=== PATIENT | female | born 1950 | race Caucasian/White ===

== ENCOUNTER 2023-01-13 09:49 | Outpatient (OUT) | payer MEDICARE, OTHER, SELFPAY ==
[2023-01-13 10:14] LABS: Basophils Absolute Auto 0.1 10^3/uL (0.0-0.1); Basophils Percent Auto 1.4 % (0.2-2.0); Eosinophils Absolute Auto 0.1 10^3/uL (0.0-0.7); Eosinophils Percent Auto 2.6 % (0.9-7.0); Hematocrit 42.3 % (36.0-48.0); Hemoglobin 14.2 g/dL (12.0-16.0); Lymphocytes Absolute Auto 1.3 10^3/uL (1.2-3.8); Lymphocytes Percent Auto 30.4 % (20.5-60.0); Mean Corpuscular HGB Conc 33.6 g/dL (29.9-35.2); Mean Corpuscular Hemoglobin 32.1 pg (26.7-34.0); Mean Corpuscular Volume 95.7 fL (81.0-99.0); Mean Platelet Volume 9.5 fL (9.5-13.5); Monocytes Absolute Auto 0.5 10^3/uL (0.3-0.8); Monocytes Percent Auto 11.8 % (1.7-12.0); Neutrophils Absolute Auto 2.3 10^3/uL (1.4-6.5); Neutrophils Percent Auto 53.8 % (43.0-75.0); Platelet Count 251 10^3/uL (150-450); Red Blood Count 4.42 10^6/uL (4.20-5.40); Red Cell Distribution Width 11.6 % (11.0-15.0); White Blood Count 4.2 10^3/uL (4.0-11.0)
[2023-01-13 11:11] LABS: Anion Gap 8.8; BUN Creatinine Ratio 34.3; Calcium 9.1 mg/dL (8.5-10.1); Carbon Dioxide 31.8 mmol/L (21.0-32.0); Chloride 101 mmol/L (98-107); Chol HDL Ratio 3.4; Cholesterol 244 mg/dL (<=200); Estimated GFR (African America >60 (>=60); Estimated GFR (Non-African Ame >60 (>=60); Glucose 94 mg/dL (74-106); HDL Cholesterol 72 mg/dL (40-60); Potassium 3.6 mmol/L (3.5-5.1); Sodium 138 mmol/L (136-145); Thyroid Stimulating Hormone 2.238 uIU/mL (0.358-3.740); Triglycerides 58 mg/dL (<=150); VLDL CHOLESTEROL 11.6 mg/dL
== END 2023-01-13 09:50 | disposition home or self-care (01) ==
LOC: LAB 09:55
PROVIDERS: PCP Internal Medicine; Visit Provider Internal Medicine
DX: E78.00 Pure hypercholesterolemia, unspecified (principal); K21.00 Gastro-esophageal reflux disease with esophagitis, without bleeding; R53.83 Other fatigue; Z79.899 Other long term (current) drug therapy
CPT/HCPCS: 36415; 80048; 80061; 82306; 84443; 85025

== ENCOUNTER 2023-01-17 11:24 | Outpatient (OUT) | payer MEDICARE, OTHER, SELFPAY ==
--- NOTE | 2023-01-17 11:28 | MM_ITS ---
Patient: JANE LIU Exam Date: 01/17/2023 : 1950 Gender:F Ordering : DR Prabhjot Hess D.O. Admission #: [id number] Family : Order #: [id number] CLICK HERE TO VIEW EXAM RADIOLOGY REPORT PROCEDURE: MM TOMOSYNTHESIS SCREENING BI COMPARISON: MG MAMM SCREEN 3D [place] CAD, 01/25/2021. MG MAMM SCREEN [place] W CAD, 01/21/2020. MG MAMM SCREEN [place] W CAD, 05/17/2018. MG MAMM [place] DIAG W CAD DIG, 04/09/2007. INDICATIONS: Screening Calculator Name NCI Breast Cancer Risk Assessment Tool 5 Year Breast Cancer Risk 1.40% Lifetime Breast Cancer Risk 4.00% Personal Breast Cancer No Personal Ovarian Cancer No Treatments None Family Cancers Sister with malignant melonoma cancer at age 41. LOCATION: [facility] BREAST COMPOSITION: Scattered areas fibroglandular density. FINDINGS: DIAGNOSTIC CATEGORY 2--BENIGN FINDING: RIGHT BREAST: No significant suspicious finding. No significant change has occurred. LEFT BREAST: No significant suspicious finding. Scattered benign-appearing calcifications are present. No significant change has occurred. RECOMMENDATIONS: ROUTINE MAMMOGRAM AND CLINICAL EVALUATION IN 12 MONTHS. PLEASE NOTE: A NORMAL MAMMOGRAM DOES NOT EXCLUDE THE POSSIBILITY OF BREAST CANCER. A CLINICALLY SUSPICIOUS PALPABLE LUMP SHOULD BE BIOPSIED. Dictated by: Al Wallace M.D. on 01/18/2023 at 13:09 Approved by: Al Wallace M.D. on 01/18/2023 at 13:20
== END 2023-01-17 11:25 | disposition home or self-care (01) ==
LOC: MAMMO 11:24
PROVIDERS: PCP Internal Medicine; Visit Provider Internal Medicine
DX: Z12.31 Encounter for screening mammogram for malignant neoplasm of breast (principal); Z80.8 Family history of malignant neoplasm of other organs or systems
CPT/HCPCS: 77063; 77067

== ENCOUNTER 2024-03-11 08:52 | Outpatient (OUT) | payer MEDICARE, OTHER, SELFPAY ==
--- NOTE | 2024-03-11 08:56 | US_ITS ---
[address] [address] Patient Name: JANE LIU MRN: [id number] date: 1950 Sex: F Assigned Patient Location: MAMMO Current Patient Location: MAMMO Accession/Order Number: [id number] Exam Date: 03/11/2024 09:06 Report Date: 03/11/2024 12:54 At the request of: ALEXANDRA YU Procedure: US aorta EXAM: US aorta HISTORY: Family History Of Aortic Aneurysm Z82.49 COMPARISON: None. TECHNIQUE: Grayscale, color and Doppler FINDINGS: Aorta: Proximal: 2.2 x 1.9 cm Mid: 1.6 x 1.6 cm Distal: 1.4 x 1.5 cm Right common iliac artery: 1.0 x 1.1 Left common iliac artery: 1.2 x 1.2 US/US aorta IMPRESSION: No aortic aneurysm Electronically authenticated by: RAINA MCDANIEL Date: 03/11/2024 12:54
--- NOTE | 2024-03-11 08:56 | MM_ITS ---
Patient Name: JANE LIU MR#: [id number] : 1950 Exam Date: 03/11/2024 Ordering Doctor: DR Prabhjot Hess D.O. RADIOLOGY REPORT PROCEDURE: MM TOMOSYNTHESIS SCREENING BI COMPARISON: MG MAMM SCREEN 3D [place] CAD, 01/25/2021. MM TOMOSYNTHESIS SCREENING BI, 01/17/2023. INDICATIONS: Screening Calculator Name NCI Breast Cancer Risk Assessment Tool 5 Year Breast Cancer Risk 1.40% Lifetime Breast Cancer Risk 3.80% Personal Breast Cancer No Personal Ovarian Cancer No Treatments None Family Cancers Sister with malignant melonoma cancer at age 41. LOCATION: [facility] BREAST COMPOSITION: There are scattered areas of fibroglandular density. FINDINGS: DIAGNOSTIC CATEGORY 2--BENIGN FINDING. NO CHANGE FROM COMPARISON. Scattered benign-appearing calcifications are present. Scattered benign-appearing lymph nodes are present. RIGHT BREAST: No significant suspicious finding. LEFT BREAST: No significant suspicious finding. RECOMMENDATIONS: ROUTINE MAMMOGRAM AND CLINICAL EVALUATION IN 12 MONTHS. PLEASE NOTE: A NORMAL MAMMOGRAM DOES NOT EXCLUDE THE POSSIBILITY OF BREAST CANCER. A CLINICALLY SUSPICIOUS PALPABLE LUMP SHOULD BE BIOPSIED. Dictated by: Lei Espitia MD on 03/11/2024 at 12:14 Approved by: Lei Espitia MD on 03/11/2024 at 12:15
[2024-03-11 10:23] LABS: Basophils Absolute Auto 0.1 10^3/uL (0.0-0.1); Basophils Percent Auto 1.1 % (0.2-2.0); Eosinophils Absolute Auto 0.1 10^3/uL (0.0-0.7); Eosinophils Percent Auto 1.8 % (0.9-7.0); Hematocrit 41.5 % (36.0-48.0); Hemoglobin 13.9 g/dL (12.0-16.0); Immature Granulocytes Abs Auto 0.01 10^3/uL (0.00-0.03); Immature Granulocytes Pct Auto 0.2 % (0.0-0.5); Lymphocytes Absolute Auto 1.4 10^3/uL (1.2-3.8); Lymphocytes Percent Auto 30.3 % (20.5-60.0); Mean Corpuscular HGB Conc 33.5 g/dL (29.9-35.2); Mean Corpuscular Hemoglobin 31.8 pg (26.7-34.0); Mean Platelet Volume 10.2 fL (9.5-13.5); Monocytes Absolute Auto 0.6 10^3/uL (0.3-0.8); Monocytes Percent Auto 14.3 % (1.7-12.0); Neutrophils Absolute Auto 2.4 10^3/uL (1.4-6.5); Neutrophils Percent Auto 52.3 % (43.0-75.0); Platelet Count 266 10^3/uL (150-450); Red Blood Count 4.37 10^6/uL (4.20-5.40); Red Cell Distribution Width 11.3 % (11.0-15.0); White Blood Count 4.5 10^3/uL (4.0-11.0)
[2024-03-11 10:32] LABS: Alanine Aminotransferase 24 U/L (14-59); Albumin Level 3.5 g/dL (3.4-5.0); Alkaline Phosphatase 60 U/L (46-116); Anion Gap 10.3; Aspartate Amino Transferase 17 U/L (15-37); BUN Creatinine Ratio 24.7; Bilirubin Total 0.4 mg/dL (0.2-1.0); Calcium 9.2 mg/dL (8.5-10.1); Carbon Dioxide 29.1 mmol/L (21.0-32.0); Chloride 103 mmol/L (98-107); Chol HDL Ratio 4.8; Cholesterol 308 mg/dL (<=200); Estimated GFR (African America >60 (>=60 mL/min/1.73m^2); Estimated GFR (Non-African Ame >60 (>=60 mL/min/1.73m^2); Globulin 3.5 g/dL; Glucose 87 mg/dL (74-106); HDL Cholesterol 64 mg/dL (40-60); Potassium 3.4 mmol/L (3.5-5.1); Sodium 139 mmol/L (136-145); Triglycerides 101 mg/dL (<=150); VLDL CHOLESTEROL 20.2 mg/dL
== END 2024-03-11 08:53 | disposition home or self-care (01) ==
LOC: MAMMO 08:52
PROVIDERS: PCP Internal Medicine; Visit Provider Internal Medicine
DX: E78.00 Pure hypercholesterolemia, unspecified (principal); R60.9 Edema, unspecified; Z83.3 Family history of diabetes mellitus; E55.9 Vitamin D deficiency, unspecified; Z12.31 Encounter for screening mammogram for malignant neoplasm of breast; Z82.49 Family history of ischemic heart disease and other diseases of the circulatory system; Z80.8 Family history of malignant neoplasm of other organs or systems
CPT/HCPCS: 36415; 76706; 77063; 77067; 80053; 80061; 82306; 85025

== ENCOUNTER 2024-07-07 10:51 | Emergency (ER) | payer MEDICARE, OTHER, SELFPAY ==
[2024-07-07 10:54] VITALS: BP 158/96; PULSE 65; TEMP 36.6; O2SAT 99; BMI 23.6
--- OUTSIDE RECORDS SUMMARY | 2024-07-07 10:57 | XMS_ITS | CCD ---
Author Organization [facility] ion Partnership [facility] Care Team Providers Care Neon Technician Name Role Phone GABRIEL, DR WILSON Admitting Unavailable AIMEE, DR RICK Primary Care Unavailable GABRIEL, DR WILSON Attending Unavailable AIMEE, DR RICK Attending Unavailable AIMEE, DR RICK Consulting Unavailable AIMEE, DR RICK Primary Care Unavailable AIMEE, DR RICK Admitting Unavailable KEVIN, DR KEY Reno Consulting Unavailable Aimee, Prabhjot Unavailable Allergies Allergy Classification Reported Allergen(s) Allergy Type Date of Onset Reaction(s) Facility (1 source) black walnut pollen extract Drug Allergy 1 [facility] Repository (3 sources) atorvastatin Drug Allergy Comment:Myalgia s [facility] Other (3 sources) HMG-CoA reductase inhibitor Drug allergy 4 Unknown [facility] Other Medications Current Medications Medication Drug Class(es) Dates Sig (Normalized) Sig (Original) Calcium + D 500-1000-40 MG-UNT-MCG (3 sources) Start: 12-20-2007 take 500-1000 tablets by mouth once daily Calcium + D 500-1000-40 MG-UNT-MCG as directed Orally 2 TABS DAILY for 0 days Nov, Active famotidine 20 mg oral tablet (4 sources) Histamine-2 Receptor Antagonist Start: 03-01-2024 take 1 tablet by mouth once daily at bedtime Famotidine Active 1 TAB PO Daily at bedtime March 01, 2024 12:00am [employer] tablet at bedtime as needed Orally Once a day; Note: Source Status: Taking; Provider: Aimee Rick ( ) take 1 tablet by reggie th every twenty-four hours Famotidine 20 MG 1 tablet at bedtime as needed Orally Once a day Active Glucosamine Chondroit MSM DS - (3 sources) Start: 06-10-2021 Glucosamine Chondroit MSM DS - as directed Orally daily for 0 days May, Active latanoprost 0.05 mg/ml ophthalmic solution (1 source) Prostaglandin Analog Start: 03-01-2024 take 1 drop(s) into the eye(s) once daily Latanoprost Active 1 DROPS EYE-BOTH Daily March 01, 2024 12:00am Magnesium (3 sources) Start: 06-10-2021 take 1 capsule by mouth once daily Magnesium 400 MG 1 capsule with a meal Orally Once a day for 0 days May, Active Multivitamins (3 sources) Start: 12-20-2007 Multivitamins Multivitamins , DAILY # 0.00, 12/20/2007, No Refill. Active DAILY for 0 Nov, Active omeprazole 20 mg oral tablet (3 sources) Proton Pump Inhibitor Start: 06-10-2021 Omeprazole 20MG Omeprazole( 20MG Oral 1 daily ) Active -Hx Entry Oral daily for 0 May, Not-Taking Completed/Discontinued Medications Medication Drug Class(es) Dates Sig (Normalized) Sig (Original) escitalopram 10 mg oral tablet (4 sources) Serotonin Reuptake Inhibitor Start: 03-01-2024 End: 03-01-2024 take 1 tablet by mouth once daily Escitalopram Oxalate Discontinued 1 TAB PO Daily March 01, 2024 12:00am March 01, 2024 11:14am [employer] tablet Orally Once a day; Note: Source Status: Taking; Provider: Aimee Rick ( ) take 1 tablet by reggie th every twenty-four hours Escitalopram Oxalate 10 MG 1 tablet Oral ly Once a day Active ezetimibe 10 mg oral tablet (4 sources) Dietary Cholesterol Absorption Inhibitor Start: 03-01-2024 End: 03-01-2024 take 1 tablet by mouth once daily Ezetimibe Discontinued 1 TAB PO Daily March 01, 2024 12:00am March 01, 2024 11:14am [employer] tablet Orally Once a day; Note: Source Status: Taking; Provider: Aimee Rick ( ) Start: 03-08-2022 take 1 tablet by reggie th every twenty-four hours Ezetimibe 10 MG 1 tablet Orally Once a day Feb, Active Problems Active Problems Problem Classification Problem Date Documented Da te Episodic/Chronic Anxiety disorders (5 sources) Generalized anxiety disorder; Translations: [Generalized anxiety disorder] 02-28-2024 Chronic Disorders of lipid metabolism (5 sources) Hypercholesterolemi a; Translations: [Pure hypercholesterolemi a, unspecified] 02-28-2024 Chronic Esophageal disorders (3 sources) Gastro-esophageal reflux disease with esophagitis; Translations: [Gastro-esophageal reflux disease with esophagitis, without bleeding] 02-28-2024 Chronic Esophageal disorders (2 sources) Esophageal disorders; Translations: [Gastro-esophageal reflux disease with esophagitis, without bleeding] Immunizations and screening for infectious disease (1 source) Encounter for immunization; Translations: [Need for prophylactic vaccination and inoculation against unspecified single disease] 02-19-2024 Episodic Nutritional deficiencies (4 sources) Vitamin D deficiency; Translations: [Vitamin D deficiency, unspecified] 03-01-2024 Chronic Other connective tissue disease (4 sources) Presence of left artificial shoulder joint; Translations: [PRESENCE LT ARTIFICIAL SHOULDER JNT] Onset: 08-04-2021 Chronic Other lower respiratory disease (4 sources) Solitary pulmonary nodule; Translations: [SOLITARY PULMONARY NODULE] Onset: 05-10-2022 Episodic Other screening for suspected conditions (not mental disorders or infectious disease) (2 sources) Patient encounter status; Translations: [Encounter for screening mammogram for malignant neoplasm of breast] 02-28-2024 Episodic Residual codes; unclassified (1 source) Family history of diabetes mellitus; Translations: [Family history of diabetes mellitus] 03-01-2024 Episodic Residual codes; unclassified (1 source) Edema; Translations: [Edema, unspecified] 03-01-2024 Episodic Residual codes; unclassified (1 source) FH: Aortic aneurysm; Translations: [Family history of ischemic heart disease and other diseases of the circulatory system] 03-01-2024 Episodic Residual codes; unclassified (1 source) Family history of diabetes mellitus; Translations: [Family history of diabetes mellitus] 03-01-2024 Episodic Past or Other Problems Problem Classification Problem Date Documented Da te Episodic/Chronic Malaise and fatigue (1 source) Weakness; Translations: [WEAKNESS] Onset: 08-10-2021 Episodic Other connective tissue disease (1 source) Pain in left arm; Translations: [PAIN IN LEFT ARM] Onset: 08-10-2021 Episodic Results Test Name Value Interpretation Reference Range Facil ity CT CHEST WO CONon 05-10-2022 CT CHEST WO CON EXAMINATION: CT CHEST WO CON HISTORY: Solitary nodule of lung COMPARISON: No relevant comparison available. TECHNIQUE: Axial, Coronal, and Sagittal images were created without the administration of IV contrast material. Dose reduction techniques were achieved by using automated exposure control and/or adjustment of mA and/or kV according to patient size and/or use of iterative reconstruction technique. FINDINGS: LUNGS: No visible pulmonary disease. PLEURA: No mass, effusion, or pneumothorax. VASCULATURE: No abnormality. KANCHAN: No mass or pathologic adenopathy. MEDIASTINUM: No mass or pathologic adenopathy. CARDIAC: No enlargement, pericardial thickening, or significant calcification. AORTA: No aneurysm or dissection. CHEST WALL: No mass or axillary adenopathy BONES: Right rotator cuff repair. Left shoulder replacement. Prominent scoliotic curvature of thoracic spine. Multilevel moderate-marked degenerative disc disease. LIMITED ABDOMEN: 1 mm nonobstructing stone within left kidney. OTHER: Negative. IMPRESSION: 1. No suspicious pulmonary nodules. 2. No appreciable infiltrates or suspicious findings. 3. Nonobstructing left nephrolithiasis. Electronically authenticated by: KEY BROWN Date: 2022-05-10 12:14 Normal [facility] Vital Signs Date Time Vital Sign Value Performing Clinician Kimberlee andersen 03-01-2024 11:110400 Body height 154.94 cm [facility] 03-01-2024 11:110400 Body mass index (BMI) [Ratio] 23.8 kg/m2 [facility] 03-01-2024 11:11040 Body weight 57.15 kg [facility] 03-01-2024 11:11-0400 Diastolic blood pressure 85 mm[Hg] [facility] 03-01-2024 11:11-0400 Heart rate 76 /min [facility] 03-01-2024 11:110400 Respiratory rate 12 /min [facility] 03-01-2024 11:11-0400 Systolic blood pressure 135 mm[Hg] [facility] Encounters Encounter Date Encounter Type Care Provider Facility Start: 03-01-2024 End: 03-01-2024 ambulatory [facility] Work Phone: Start: 03-01-2024 End: 03-01-2024 Patient encounter procedure [facility] Work Phone: Start: 02-28-2024 Patient encounter procedure [facility] Start: 02-19-2024 End: 02-19-2024 ambulatory [facility] Work Phone: Start: 02-19-2024 End: 02-19-2024 Patient encounter procedure [facility] Work Phone: Start: 02-17-2023 End: 02-17-2023 ambulatory Prabhjot Yu Other [facility] Other Start: 02-17-2023 Nursing evaluation o f patient and report Prabhjot Yu [facility] Start: 02-03-2023 End: 02-03-2023 ambulatory Prabhjot Yu Other [facility] Other Start: 02-03-2023 Telephone encounter Prabhjot Yu [facility] Start: 01-16-2023 End: 01-16-2023 ambulatory Prabhjot Yu Other [facility] Other Start: 01-16-2023 Telephone encounter Prabhjot Yu [facility] Start: 05-10-2022 End: 05-11-[address] PRABHJOT YU Facility:[facility] Start: 08-04-2021 End: 09-28-[address] DOCTOR RIOS Facility:[facility] Plan of Treatment Date Care Activity Detail Author MG Breast - bilateral Screening [facility] US scan of abdominal aorta [facility] Immunizations Immunization Date Immunization Notes Care Provider Fa josh 02-19-2024 influenza, high dose seasonal, preservative-free [facility] 02-17-2023 influenza virus vaccine, unspecified formulation [facility] 02-17-2023 influenza, high dose seasonal, preservative-free Prabhjot Yu Other [facility] Other 03-04-2022 influenza virus vaccine, unspecified formulation [facility] 03-04-2022 influenza, high dose seasonal, preservative-free Prabhjot Yu Other [facility] Other 03-19-2021 influenza virus vaccine, split virus (incl. purified surface antigen) Prabhjot Yu Other [facility] Other 03-19-2021 influenza virus vaccine, unspecified formulation [facility] 03-10-2020 influenza virus vaccine, split virus (incl. purified surface antigen) Prabhjot Yu Other [facility] Other 03-10-2020 influenza virus vaccine, unspecified formulation [facility] 03-11-2019 influenza virus vaccine, split virus (incl. purified surface antigen) Prabhjot Yu Other [facility] Other 03-11-2019 influenza virus vaccine, unspecified formulation [facility] 05-08-2018 pneumococcal polysaccharide vaccine, 23 valent Prabhjot Yu Other [facility] 02-07-2018 influenza virus vaccine, split virus (incl. purified surface antigen) Prabhjot Yu Other [facility] Other 02-07-2018 influenza virus vaccine, unspecified formulation [facility] 06-20-2017 influenza virus vaccine, split virus (incl. purified surface antigen) Prabhjot Yu Other [facility] Other 06-20-2017 influenza virus vaccine, unspecified formulation [facility] 04-25-2017 pneumococcal conjuga te vaccine, 13 valent Prabhjot Yu Other [facility] Payers Date Payer Category Payer Medicare [id number] 1958 Unknown [id number] 1950 Unknown [id number] 1950 Unknown [id number] Social History Date Type Detail Facility Sex Assigned At [facility] Other Start: 1950 Sex Assigned At Female [facility] Chief complaint+Reason for visit Narrative Note Date & Type Note Facility Chief complaint+Reason for visit Narrative Reason for Visit Immunization due Family history of diabetes mellitus JONATHON (generalized anxiety disorder) GERD (gastroesophageal reflux disease) Hypercholesterolemia Medicare annual wellness visit, subsequent Screening mammogram for breast cancer [facility] Work Phone: Evaluation note Note Date & Type Note Facility Evaluation note No Information [facility] Other Evaluation note Note Date & Type Note Facility Evaluation note No assessment information availa ble [facility] Work Phone: Evaluation note Note Date & Type Note Facility Evaluation note Diagnosis Onset Date Immunization due noneactive Family history of diabetes mellitus acute JONATHON (generalized anxiety disorder) acute GERD (gastroesophageal reflux disease) acute Hypercholesterolemia acute Medicare annual wellness visit, subsequent acute Screening mammogram for breast cancer acute [facility] Work Phone: History general Narrative - Reported Note Date & Type Note Facility History general Narrative - Reported Type Medical History Palpitations Medical History Generalized anxiety disorder Medical History Hyperlipidemia, unspecified Medical History Flushing Medical History Solitary lung nodule Surgical History LAN/BSO 2016 Surgical History REVERSE TOTAL REPLAC EMENT OF LEFT SHOULDER JOINT Surgical History TONSILLECTOMY Surgical History APPENDECTOMY Surgical History ARTHROSCOPY, SHOULDER, BILATERA L Hospitalization History SEE SURIGICAL HX [facility] Other Summary Purpose Family History Relationship Condition Age at Onset Recorded Date/T mamta mother Diabetes mellitus Unknown Unknown sister Malignant melanoma Unknown Malignant neoplasm Unknown Advance Directives Advance Directive Response Recorded Date/ Time Advance Directives No January 10:09am Chief Complaint and Reason for Visit Chief Complaint flu shot Additional Source Comments INFORMATION SOURCE (unrecogn ized section and content) DATE CREATED AUTHOR 05/20/2022 [facility] REASON FOR VISIT (unrecogniz ed section and content) Lab ResultsCologuard results flu shot Care Teams (unrecognized sec tion and content) Team Status: Active Member Role Status Dates Prabhjot Ball , DO Primary Care Provider Active Team Status: Inactive Member Role Status Dates Prabhjot Yu DO Primary Care Provide r, Attending Provider Active Start: February 19, 2024 End: February 19, 2024 Team Status: Inactive Member Role Status Dates Prabhjot Yu DO Primary Care Provide r, Attending Provider Active Start: March 01, 2024 End: March 01, 2024 Goals (unrecognized section and content) Goals may be documented in a n alternate section FOR RECORDS PERTAINING TO PATIENTS WHO ARE OR HAVE BEEN ENROLLED IN A CHEMICAL DEPENDENCY/SUBSTANCEABUSE PROGRAM, SOME INFORMATION MAY BE OMITTED. This clinical summary was aggregated from multiple sources. Caution should be exercised in using it in the provision of clinical care. This summary normalizes information from multiple sources, and as a consequence, information in this document may materially change the coding, format and clinical context of patient data. In addition, data may be omitted in some cases. CLINICAL DECISIONS SHOULD BE BASED ON THE PRIMARY CLINICAL RECORDS. [facility] [facility]. provides no warranty or guarantee of the accuracy or completeness of information in this document.
--- NOTE | 2024-07-07 11:07 | CT_ITS ---
The [address] [address] Patient Name: JANE LIU MRN: [id number] date: 1950 Sex: F Assigned Patient Location: ER Current Patient Location: ED.MAIN Accession/Order Number: [id number] Exam Date: 07/07/2024 11:14 Report Date: 07/07/2024 12:31 At the request of: AMBER MATHEW Procedure: CT abdomen pelvis wo con CT ABDOMEN AND PELVIS WITHOUT CONTRAST: 07/07/2024 11:14 AM EST Clinical Data: left lower quadrant pain with flank pain Comparison: No previous Unenhanced helically acquired data per protocol. The lack of IV contrast material hampers evaluation of the viscera, for adenopathy, and of the vasculature. The lack of oral contrast medium to some extent hampers evaluation of the bowel. All CT scans at this facility use dose modulation, iterative reconstruction, and/or weight based dosing when appropriate to reduce radiation dose to as low as reasonably achievable. FINDINGS: LOWER THORAX: Unremarkable. LIVER: No acute findings. SPLEEN: No acute findings. GB/BILIARY: No acute findings at CT. PANCREAS: No acute findings. ADRENALS: No acute findings. KIDNEYS/URETERS: Kidneys are symmetric in size and overall density on this unenhanced study. No acute findings on the right. On the left modest hydronephrosis and hydroureter to the UVJ. At this point there is a 3 mm calculus VESSELS: No AAA. ABDOMINAL NODES: No obvious adenopathy. PELVIC NODES: Allowing for bowel no distinct evidence of adenopathy BLADDER: No acute findings. REPRODUCTIVE: Uterus is absent. What are probably the ovaries are small. PERITONEUM: No free air. No free fluid. EXTRAPERITONEUM: No acute findings. BOWEL: No GI obstruction a few colonic diverticula. A modest hiatal hernia. On this study performed without oral or IV contrast no distinct evidence of focally thickened loop of bowel. BODY WALL: No acute findings. BONES: A moderate degenerative upper lumbar levoscoliosis. Multilevel degenerative changes thoracolumbar spinal column OTHER: No acute findings. CT/CT abdomen pelvis wo con IMPRESSION: 1. Modest left hydronephrosis and hydroureter. At the left UVJ there is a 3 mm calculus.. Electronically authenticated by: JULIA ZUNIGA Date: 07/07/2024 12:31
[2024-07-07] MEDS: MORPHINE SULFATE 2 MG/ML SYRINGE 1 MG IV (11:31)
[2024-07-07] MEDS: ONDANSETRON PF 4 MG/2 ML VIAL IV (11:31)
[2024-07-07 11:43] LABS: Basophils Absolute Auto 0.1 10^3/uL (0.0-0.1); Basophils Percent Auto 1.1 % (0.2-2.0); Eosinophils Absolute Auto 0.1 10^3/uL (0.0-0.7); Eosinophils Percent Auto 0.9 % (0.9-7.0); Hemoglobin 12.6 g/dL (12.0-16.0); Immature Granulocytes Abs Auto 0.01 10^3/uL (0.00-0.03); Immature Granulocytes Pct Auto 0.2 % (0.0-0.5); Lymphocytes Absolute Auto 1.2 10^3/uL (1.2-3.8); Lymphocytes Percent Auto 21.4 % (20.5-60.0); Mean Corpuscular HGB Conc 34.1 g/dL (29.9-35.2); Mean Corpuscular Hemoglobin 32.5 pg (26.7-34.0); Mean Corpuscular Volume 95.4 fL (81.0-99.0); Mean Platelet Volume 9.8 fL (9.5-13.5); Monocytes Absolute Auto 0.5 10^3/uL (0.3-0.8); Monocytes Percent Auto 9.1 % (1.7-12.0); Neutrophils Absolute Auto 3.8 10^3/uL (1.4-6.5); Neutrophils Percent Auto 67.3 % (43.0-75.0); Platelet Count 255 10^3/uL (150-450); Red Blood Count 3.88 10^6/uL (4.20-5.40); Red Cell Distribution Width 11.5 % (11.0-15.0); White Blood Count 5.6 10^3/uL (4.0-11.0)
[2024-07-07 11:48] LABS: Bilirubin Urine NEGATIVE (NEGATIVE); Blood Urine NEGATIVE (NEGATIVE); Clarity Urine CLEAR (CLEAR); Color Urine LT. YELLOW (YELLOW); Glucose Urine UA NEGATIVE (NEGATIVE); Ketones Urine TRACE mg/dL (NEGATIVE); Leukocyte Esterase Urine NEGATIVE (NEGATIVE); Nitrite Urine NEGATIVE (NEGATIVE); Protein Urine NEGATIVE (NEG/TRACE); Specific Gravity Urine 1.015 (1.005-1.025); Urobilinogen Urine 0.2 EU/dL (0.2-1.0)
[2024-07-07 11:50] LABS: Urine Microscopic Indicated NO
[2024-07-07 12:01] LABS: Alanine Aminotransferase 22 U/L (14-59); Albumin Globulin Ratio 1.1; Albumin Level 3.6 g/dL (3.4-5.0); Alkaline Phosphatase 64 U/L (46-116); Anion Gap 10.5; Aspartate Amino Transferase 17 U/L (15-37); BUN Creatinine Ratio 21.4; Bilirubin Total 0.4 mg/dL (0.2-1.0); Calcium 9.4 mg/dL (8.5-10.1); Chloride 101 mmol/L (98-107); Estimated GFR (African America 55 (>=60 mL/min/1.73m^2); Estimated GFR (Non-African Ame 45 (>=60 mL/min/1.73m^2); Globulin 3.3 g/dL; Glucose 116 mg/dL (74-106); Potassium 3.5 mmol/L (3.5-5.1); Sodium 137 mmol/L (136-145); Total Protein 6.9 g/dL (6.4-8.2)
[2024-07-07] MEDS: 0.9 % SODIUM CHLORIDE 1,000 ML 500 ML IV (12:27)
--- NOTE | 2024-07-07 13:38 | ED.ABDPAIN1 ---
HPI - Abdominal Pain General Chief Complaint: Abdominal Pain Stated Complaint: abdominal pain, back pain Time Seen by Provider: 07/07/24 11:00 Source: patient Mode of arrival: walk-in History of Present Illness HPI narrative: The patient have no significant known past medical history 74 years old female, coming to the ER with a left lower quadrant pain that started this morning it is radiating to her left flank associated with nausea and vomiting, patient denies any burning with urination denies any chills She had no similar presentation before Related Data Previous Rx's ?Medication ?Instructions ?Recorded ondansetron 4 mg disintegrating 4 mg PO Q8H PRN nausea and 07/07/24 tablet vomiting 3 days #10 tabs oxycodone-acetaminophen 5 mg-325 1 tab PO Q8H PRN pain #9 tabs 07/07/24 mg tablet (Percocet) tamsulosin 0.4 mg capsule (Flomax) 0.4 mg PO DAILY #10 caps 07/07/24 Allergies Allergy/AdvReac Type Severity Reaction Status Date / Time hydromorphone (From Dilaudid) AdvReac Mild Vomiting Verified 07/07/24 10:59 Review of Systems ROS Status of ROS 10 or more systems reviewed and unremarkable except as noted in history and below PFSH PFSH Social History Little interest or pleasure in doing things: not at all Feeling down, depressed, or hopeless: not at all Exam Narrative Exam Narrative: Nurses notes and vital signs reviewed and patient is not hypoxic. General: Well-appearing and in no apparent distress. Skin: Warm, dry, no pallor noted. No rash. Head: Normocephalic, atraumatic. Neck: Supple, non-tender. Eye: Pupils are equal, round and EOMI. No scleral icterus. Ears, Nose, Mouth, and Throat: TM are clear, no nasal mucosal hypertrophy. Oral mucosa is moist, no posterior oropharynx erythema, uvula is mid-line Cardiovascular: Regular Rate and Rhythm without murmur, gallop or rub. Respiratory: No accessory muscle use or respiratory distress. Lungs are clear to auscultation, no wheezing, rales or rhonchi Chest Wall: no tenderness Back: No midline thoracic or lumbar vertebral tenderness. No CVA tenderness Musculoskeletal: normal ROM, no calf or popliteal tenderness, no lower extremity edema/swelling GI: Abdomen is soft, non-distended. Normal bowel sounds. No masses appreciated. No tenderness to palpation. No rebound, guarding, or rigidity noted. Neurological: A&O x4. No cranial nerve dysfunction observed. No truncal ataxia. Moves all extremities. Sensation intact. Psychiatric: Cooperative and interactive. Normal mood and affect. Constitutional Vital Signs, click to edit/add: Last Vital Signs Temp 97.8 F 07/07/24 10:54 Pulse 65 07/07/24 10:54 Resp 16 07/07/24 10:54 BP 158/96 H 07/07/24 10:54 Pulse Ox 99 07/07/24 10:54 O2 Del Method Room Air 07/07/24 10:54 Course Vital Signs Vital signs: Vital Signs Temperature 97.8 F 07/07/24 10:54 Pulse Rate 65 07/07/24 10:54 Respiratory Rate 16 07/07/24 10:54 Blood Pressure 158/96 H 07/07/24 10:54 Pulse Oximetry 99 07/07/24 10:54 Oxygen Delivery Method Room Air 07/07/24 10:54 Temperature 97.8 F 07/07/24 10:54 Pulse Rate 65 07/07/24 10:54 Respiratory Rate 16 07/07/24 10:54 Blood Pressure 158/96 H 07/07/24 10:54 Pulse Oximetry 99 07/07/24 10:54 Oxygen Delivery Method Room Air 07/07/24 10:54 MDM - Abdominal Pain MDM Narrative Medical decision making narrative: The patient CBC shows no leukocytosis and the urinalysis was within normal The chemistry showing a mild acute kidney injury and the patient CAT scan showed that she have a 3 mm kidney stone in the left side causing moderate hydronephrosis The patient initially tried some ibuprofen at home and she will avoid using NSAIDs right now she was treated with morphine in the ER and discharged home with Percocet after she was feeling better The patient case was discussed with Dr. Argueta of urology service and she agreed that the patient can follow-up as outpatient she was discharged with Flomax and urine strainer The patient instructed about coming back in case of increasing pain or any fever or chills The patient is to follow up with primary care physician in next 2-3 days or to return to the emergency department should any of the signs or symptoms worsen or new symptoms develop. The patient agrees with the following Diagnosis and Treatment plan and the patient will be discharged home. Lab Data Labs: Lab Results 07/07/24 07/07/24 Range/Units 11:32 11:40 WBC 5.6 (4.0-11.0) 10^3/uL RBC 3.88 L (4.20-5.40) 10^6/uL Hgb 12.6 (12.0-16.0) g/dL Hct 37.0 (36.0-48.0) % MCV 95.4 (81.0-99.0) fL MCH 32.5 (26.7-34.0) pg MCHC 34.1 (29.9-35.2) g/dL RDW 11.5 (11.0-15.0) % Plt Count 255 (150-450) 10^3/uL MPV 9.8 (9.5-13.5) fL Neut % (Auto) 67.3 (43.0-75.0) % Lymph % (Auto) 21.4 (20.5-60.0) % [place] % (Auto) 9.1 (1.7-12.0) % Eos % (Auto) 0.9 (0.9-7.0) % Baso % (Auto) 1.1 (0.2-2.0) % Neut # (Auto) 3.8 (1.4-6.5) 10^3/uL Lymph # (Auto) 1.2 (1.2-3.8) 10^3/uL [place] # (Auto) 0.5 (0.3-0.8) 10^3/uL Eos # (Auto) 0.1 (0.0-0.7) 10^3/uL Baso # (Auto) 0.1 (0.0-0.1) 10^3/uL Abs Immat Gran (auto) 0.01 (0.00-0.03) 10^3/uL Imm/Tot Granulo (auto) 0.2 (0.0-0.5) % Sodium 137 (136-145) mmol/L Potassium 3.5 (3.5-5.1) mmol/L Chloride 101 (98-107) mmol/L Carbon Dioxide 29.0 (21.0-32.0) mmol/L Anion Gap 10.5 BUN 25.0 H (7.0-18.0) mg/dL Creatinine 1.17 H (0.55-1.02) mg/dL Est GFR ( Amer) 55 L (>=60 mL/min/1.73m^2) Est GFR (Non-Af Amer) 45 L (>=60 mL/min/1.73m^2) BUN/Creatinine Ratio 21.4 Glucose 116 H (74-106) mg/dL Calcium 9.4 (8.5-10.1) mg/dL Total Bilirubin 0.4 (0.2-1.0) mg/dL AST 17 (15-37) U/L ALT 22 (14-59) U/L Alkaline Phosphatase 64 (46-116) U/L Total Protein 6.9 (6.4-8.2) g/dL Albumin 3.6 (3.4-5.0) g/dL Globulin 3.3 g/dL Albumin/Globulin Ratio 1.1 Urine Color Lt. yellow (YELLOW) Urine Clarity Clear (CLEAR) Urine pH 7.0 (5.0-9.0) Ur Specific [place] 1.015 (1.005-1.025) Urine Protein Negative (NEG/TRACE) mg/dL Urine Glucose (UA) Negative (NEGATIVE) mg/dL Urine Ketones Trace A (NEGATIVE) mg/dL Urine Occult Blood Negative (NEGATIVE) Urine Nitrite Negative (NEGATIVE) Urine Bilirubin Negative (NEGATIVE) Urine Urobilinogen 0.2 (0.2-1.0) EU/dL Ur Leukocyte Esterase Negative (NEGATIVE) Discharge Plan Discharge Chief Complaint: Abdominal Pain Clinical Impression: Kidney stone, Hydronephrosis, KRISSY (acute kidney injury) Patient Disposition: Home, Self-Care Time of Disposition Decision: 12:48 Condition: Good Prescriptions / Home Meds: New tamsulosin [Flomax] 0.4 mg capsule 0.4 mg PO DAILY Qty: 10 0RF oxycodone-acetaminophen [Percocet] 5-325 mg tablet 1 tab PO Q8H PRN (Reason: pain) Qty: 9 0RF ondansetron 4 mg tablet,disintegrating 4 mg PO Q8H PRN (Reason: nausea and vomiting) 3 Days Qty: 10 0RF Print Language: Ivorian Instructions: Acute Kidney Injury (DC), Hydronephrosis (ED) Referrals: Prabhjot Hess DO [Primary Care Provider] - 1 week Anne Sue MD [Physician] - As soon as possible Discharge Date/Time: 07/07/24 13:08
== END 2024-07-07 13:08 | disposition home or self-care (01) ==
PROVIDERS: Emergency Provider Emergency Medicine; PCP Internal Medicine
DX: N13.2 Hydronephrosis with renal and ureteral calculous obstruction (principal); N17.9 Acute kidney failure, unspecified
CPT/HCPCS: 36415; 74176; 80053; 81003; 85025; 96374; 96375; 99284; J2270; J2405

== ENCOUNTER 2024-08-15 08:45 | Outpatient (OUT) | payer MEDICARE, OTHER, SELFPAY ==
--- NOTE | 2024-08-15 08:49 | US_ITS ---
The [address] [address] Patient Name: JANE LIU MRN: [id number] date: 1950 Sex: F Assigned Patient Location: US Current Patient Location: US Accession/Order Number: [id number] Exam Date: 08/15/2024 11:17 Report Date: 08/15/2024 11:20 At the request of: ARLETTE COLES Procedure: US renal BI BILATERAL RENAL AND BLADDER ULTRASOUND CLINICAL HISTORY: Kidney Stone, Urinary Tract Infection Symptoms COMPARISON: Abdomen performed today. FINDINGS: Estimation of renal size is approximately 9.1 cm on the right and 9.2 cm on the left. Right kidney appears unremarkable. There appears be a 4 mm nodule encompassing involving the left kidney. No hydronephrosis. Presumed left extrarenal pelvis. The urinary bladder is partially distended with a volume of 120 ml. No shadowing stone or focal lesion. US/US renal BI IMPRESSION: 4 MM STONE LEFT KIDNEY. NO HYDRONEPHROSIS IS SEEN. Impression dictated by: Christophe Gonzalez Jr., D.O.08/15/2024 11:20 AM Dictation Location: [place] [address] Electronically authenticated by: [id number] Y Date: 08/15/2024 11:20
--- NOTE | 2024-08-15 09:02 | XR_ITS ---
The [address] [address] Patient Name: JANE LIU MRN: [id number] date: 1950 Sex: F Assigned Patient Location: US Current Patient Location: US Accession/Order Number: [id number] Exam Date: 08/15/2024 11:16 Report Date: 08/15/2024 11:17 At the request of: ARLETTE COLES Procedure: XR abdomen 1V KUB: CLINICAL INFORMATION: Kidney stone. UTI. COMPARISON: CT abdomen and pelvis 07/07/2024 FINDINGS: No definite urinary tract calculus is seen. No bowel obstruction or free air. Phleboliths are seen within the pelvis. Osseous structures demonstrate degenerative change and scoliosis. XR/XR abdomen 1V IMPRESSION: NO DEFINITE URINARY TRACT CALCULUS IS SEEN. Impression dictated by: Christophe Gonzalez Jr., D.O.08/15/2024 11:17 AM Dictation Location: [place] [address] Electronically authenticated by: [id number] Y Date: 08/15/2024 11:17
[2024-08-15 10:32] LABS: Bilirubin Urine NEGATIVE (NEGATIVE); Blood Urine NEGATIVE (NEGATIVE); Clarity Urine CLEAR (CLEAR); Color Urine LT. YELLOW (YELLOW); Glucose Urine UA NEGATIVE (NEGATIVE); Ketones Urine NEGATIVE (NEGATIVE); Leukocyte Esterase Urine TRACE (NEGATIVE); Nitrite Urine NEGATIVE (NEGATIVE); Protein Urine NEGATIVE (NEG/TRACE); Urobilinogen Urine 0.2 EU/dL (0.2-1.0); pH Urine 7.5 (5.0-9.0)
== END 2024-08-15 08:46 | disposition home or self-care (01) ==
LOC: US 08:45
PROVIDERS: PCP Internal Medicine; Visit Provider Physician Assistant
DX: N20.0 Calculus of kidney (principal); R39.9 Unspecified symptoms and signs involving the genitourinary system
CPT/HCPCS: 74018; 76775; 81003; 87086

== ENCOUNTER 2025-03-14 10:11 | Outpatient (OUT) | payer MEDICARE, OTHER, SELFPAY ==
--- OUTSIDE RECORDS SUMMARY | 2025-03-14 10:18 | XMS_ITS | CCD ---
Author Organization [facility] Care Team Providers Care [employer] Aide Name Role Phone GABRIEL, DR WILSON Admitting Unavailable DESHAWN, DR RICK Primary Care Unavailable GABRIEL, DR WILSON Attending Unavailable DESHAWN, DR RICK Attending Unavailable DESHAWN, DR RICK Consulting Unavailable DESHAWN, DR RICK Primary Care Unavailable DESHAWN, DR RICK Admitting Unavailable ZIEBER, DR KEY [place] [employer] Unavailable Prabhjot Hess Unavailable Bibi Ward Attending Unavailable Bibi Ward Admitting Unavailable BIBI WARD Attending Unavailable BIBI WARD Attending Unavailable Prabhjot Hess DO Primary Care Provider Prabhjot Hess DO Attending Provider Unallocated MD, N[place] Provider Primary Care Provi dejuan Allergies Allergy Classification Reported Allergen(s) Allergy Type Date of Onset Reaction(s) Facility (1 source) black walnut pollen extract Drug Allergy 1 [facility] Repository (3 sources) atorvastatin Drug Allergy Comment:Myalgia s [employer] Other (3 sources) HMG-CoA reductase inhibitor Drug allergy 4 [facility] [employer] Other (1 source) atorvastatin Drug Allergy [address] [facility] Repository Medications Current Medications Medication Drug Class(es) Dates Sig (Normalized) Sig (Original) Biotin (1 source) Start: 07-09-2024 take 5000 ug by mouth once daily biotin 5,000 mcg, Oral, Daily, Refills(s) 0 Start Date: 07/09/24 Status: Ordered Calcium + D 500-1000-40 MG-UNT-MCG (3 sources) Start: 12-20-2007 take 500-1000 tablets by mouth once daily Calcium + D 500-1000-40 MG-UNT-MCG as directed Orally 2 TABS DAILY for 0 days Nov, Active Calcium Carbonate (1 source) Start: 07-09-2024 Tums See Instructions, Refills(s) 0 Start Date: 07/09/24 Status: Ordered calcium citrate 1190 mg / cholecalciferol 0.005 mg oral tablet (1 source) Vitamin D Start: 07-09-2024 take 1 tablet by mouth once daily calcium (as citrate)-vitamin D 250 mg-200 intl units oral tablet 1 tab(s), Oral, Daily, Refill(s) 0 Start Date: 07/09/24 Status: Ordered Centrum (1 source) Start: 07-09-2024 Centrum See Instructions, Refill(s) 0 Start Date: 07/09/24 Status: Ordered Chondroitin Sulfates / Glucosamine (1 source) Start: 07-09-2024 Glucosamine Chondroitin 3 cap(s), Refill(s) 0 Start Date: 07/09/24 Status: Ordered Collagen (1 source) Start: 07-09-2024 collagen topical powder See Instructions, Refill(s) 0 Start Date: 07/09/24 Status: Ordered famotidine 20 mg oral tablet (8 sources) Histamine-2 Receptor Antagonist Start: 07-09-2024 take 20 mg by mouth twice daily famotidine 20 mg, Oral, BID, Refills(s) 0 Start Date: 07/09/24 Status: Ordered Start: 03-01-2024 End: 03-11-2025 take 1 tablet by mouth once daily at bedtime Famotidine 20 mg tablet Discontinued 1 TAB PO Daily at bedtime March 01, 2024 12:00am March 11, 2025 2:32pm Free[employer]Si tablet at bedtime as needed Orally Once a day; Note: Source Status: Taking; Provider: Deshawn Rick ( ) take 1 tablet by reggie th every twenty-four hours Famotidine 20 MG 1 tablet at bedtime as needed Orally Once a day Active Glucosamine Chondroit MSM DS - (3 sources) Start: 06-10-2021 Glucosamine Chondroit MSM DS - as directed Orally daily for 0 days May, Active latanoprost 0.05 mg/ml ophthalmic solution (7 sources) Prostaglandin Analog Start: 09-03-2024 take 1 drop(s) into the eye(s) once daily in the evening latanoprost (Xalatan) 0.005 % ophthalmic solution INSTILL 1 DROP INTO BOTH EYES EVERY EVENING DIRECTED 09/03/2024 Active Start: 07-09-2024 take 1 drop(s) into the eye(s) once daily in the evening latanoprost 0.005% ophthalmic emulsion 1 drop(s), Eye-Both, qPM, Refill(s) 0 Start Date: 07/09/24 Status: Ordered Start: 03-01-2024 take 1 drop(s) into the eye(s) once daily Latanoprost 0.005 % drops Active 1 DROPS EYE-BOTH Daily March 01, 2024 12:00am Complies with drug therapy Start: 03-01-2024 take 1 drop(s) into the eye(s) once daily Latanoprost 0.005 % drops Active 1 DROPS EYE-BOTH Daily March 01, 2024 12:00am Start: 03-01-2024 take 1 drop(s) into the eye(s) once daily Latanoprost Active 1 DROPS EYE-BOTH Daily March 01, 2024 12:00am Magnesium (3 sources) Start: 06-10-2021 take 1 capsule by mouth once daily Magnesium 400 MG 1 capsule with a meal Orally Once a day for 0 days May, Active Magnesium glycinate (1 source) Start: 07-09-2024 take 250 mg by mouth once daily magnesium glycinate 250 mg, Oral, Daily, Refills(s) 0 Start Date: 07/09/24 Status: Ordered melatonin 10 mg extended release oral tablet (1 source) Start: 07-09-2024 take 10 mg by mouth once daily at bedtime melatonin 10 mg, Oral, Once a day (at bedtime), Refills(s) 0 Start Date: 07/09/24 Status: Ordered Multivitamins (3 sources) Start: 12-20-2007 Multivitamins Multivitamins [...] Sig (Original) escitalopram 10 mg oral tablet (7 sources) Serotonin Reuptake Inhibitor Start: 03-01-2024 End: 03-01-2024 take 1 tablet by mouth once daily Escitalopram Oxalate 10 mg tablet Discontinued 1 TAB PO Daily March 01, 2024 12:00am March 01, 2024 11:14am FreeTextSi tablet Orally Once a day; Note: Source Status: Taking; Provider: Deshawn Rick ( ) take 1 tablet by reggie th every twenty-four hours Escitalopram Oxalate 10 MG 1 tablet Oral ly Once a day Active ezetimibe 10 mg oral tablet (7 sources) Dietary Cholesterol Absorption Inhibitor Start: 03-01-2024 End: 03-01-2024 take 1 tablet by mouth once daily Ezetimibe 10 mg tablet Discontinued 1 TAB PO Daily March 01, 2024 12:00am March 01, 2024 11:14am FreeTextSi tablet Orally Once a day; Note: Source Status: Taking; Provider: Deshawn Rick ( ) Start: 03-08-2022 take 1 tablet by reggie th every twenty-four hours Ezetimibe 10 MG 1 tablet Orally Once a day Feb, Active sulfamethoxazole 800 mg / trimethoprim 160 mg oral tablet (2 sources) Dihydrofolate Reductase Inhibitor Antibacterial, Sulfonamide Antimicrobial Start: 08-05-2024 End: 03-11-2025 take 1 tablet by mouth twice daily Sulfamethoxazole-Trimethoprim 800-160 mg tablet Discontinued 1 TAB PO Twice daily 03 02August 05, 2024 12:00am March 11, 2025 2:13pm Problems Active Problems Problem Classification Problem Date Documented Da te Episodic/Chronic Abdominal pain (2 sources) Left lower quadrant pain; Translations: [Left lower quadrant pain] 03-12-2025 Episodic Anxiety disorders (9 sources) Generalized anxiety disorder; Translations: [Generalized anxiety disorder] 02-28-2024 Chronic Calculus of urinary tract (4 sources) Kidney stone; Translations: [Calculus of kidney] 07-08-2024 Episodic Disorders of lipid metabolism (10 sources) Hypercholesterolemia ; Translations: [Pure hypercholesterolemia , unspecified] 02-28-2024 Chronic Esophageal disorders (8 sources) Gastro-esophageal reflux disease with esophagitis; Translations: [Gastro-esophageal reflux disease with esophagitis, without bleeding] 02-28-2024 Chronic Esophageal disorders (2 sources) Esophageal disorders; Translations: [Gastro-esophageal reflux disease with esophagitis, without bleeding] Immunizations and screening for infectious disease (1 source) Encounter for immunization; Translations: [Need for prophylactic vaccination and inoculation against unspecified single disease] 02-19-2024 Episodic Nutritional deficiencies (7 sources) Vitamin D deficiency; Translations: [Vitamin D deficiency, unspecified] 03-01-2024 Chronic Osteoporosis (1 source) Osteoporosis 07-09-2024 Chronic Other connective tissue disease (4 sources) Presence of left artificial shoulder joint; Translations: [PRESENCE LT ARTIFICIAL SHOULDER JNT] Onset: 08-04-2021 Chronic Other diseases of kidney and ureters (1 source) Urinary tract obstruction; Translations: [Hydronephrosis with renal and ureteral calculous obstruction] Onset: 07-09-2024 Episodic Other gastrointestinal disorders (2 sources) Abdominal bloating; Translations: [Abdominal distension (gaseous)] 03-12-2025 Episodic Other lower respiratory disease (4 sources) Solitary pulmonary nodule; Translations: [SOLITARY PULMONARY NODULE] Onset: 05-10-2022 Episodic Other screening for suspected conditions (not mental disorders or infectious disease) (6 sources) Patient encounter status; Translations: [Encounter for screening mammogram for malignant neoplasm of breast] 02-28-2024 Episodic Residual codes; unclassified (5 sources) Family history of diabetes mellitus; Translations: [Family history of diabetes mellitus] 03-01-2024 Episodic Residual codes; unclassified (4 sources) Edema; Translations: [Edema, unspecified] 03-01-2024 Episodic Residual codes; unclassified (4 sources) FH: Aortic aneurysm; Translations: [Family history of ischemic heart disease and other diseases of the circulatory system] 03-01-2024 Episodic Residual codes; unclassified (1 source) Family history of diabetes mellitus; Translations: [Family history of diabetes mellitus] 03-01-2024 Episodic Residual codes; unclassified (1 source) Insomnia 07-09-2024 Episodic Unclassified (1 source) Obstructive hydronephrosis 07-09-2024 Past or Other Problems Problem Classification Problem Date Documented Da te Episodic/Chronic Malaise and fatigue (1 source) Weakness; Translations: [WEAKNESS] Onset: 08-10-2021 Episodic Other connective tissue disease (1 source) Pain in left arm; Translations: [PAIN IN LEFT ARM] Onset: 08-10-2021 Episodic Results Test Name Value Interpretation Reference Range Facil ity Laboratory - Chemistry and C hemistry - challengeon 08-15-2024 Bilirubin Ql (U) Negative NEGATIVE [facility] Glucose (U) [Mass/Vol] Negative NEGATIVE [facility] Ketones Ql (U) Negative NEGATIVE [facility] pH (U) 7.5 [pH] 5.0-9.[address] [facility] Specific gravity (U) [Rel density] 1.010 1.005-1.[address] [facility] Urobilinogen Qn (U) 0.2 {Jerman'U}/dL 0.2-1.[address] [facility] Laboratory - Specimen inform ationon 08-15-2024 Appearance (U) CLEAR CLEAR [facility] Color (U) LT. YELLOW YELLOW [facility] Laboratory - Urinalysison Leukocyte esterase Test strip Ql (U) TRACE Abnormal NEGATIVE [facility] Nitrite Ql (U) Negative NEGATIVE [facility] Protein Ql (U) Negative NEG/TRACE [facility] No Panel Informationon 08-15 Urine Occult Blood Negative NEGATIVE [facility] Urine Cultureon 08-15-2024 Bacteria identified Cx Nom (U) 75,000 colonies/ml mixed bacterial skin contaminants 2 Days PERFORMED BY: [facility] [address] [place] [address] PATHOLOGIST SANE RN GEMMA VELASQUEZ M.D. Normal [facility] Comment on above: Performed By: #### C UU #### [facility] [address] Laboratory - Chemistry and C hemistry - challengeon 08-05-2024 Bilirubin Ql (U) Negative [facility] Glucose (U) [Mass/Vol] Negative [facility] Ketones Ql (U) Negative [facility] pH (U) 7.0 [pH] [facility] Specific gravity (U) [Rel density] 1.[address] [facility] Urobilinogen (U) [Mass/Vol] 0.2 mg/dL [facility] Laboratory - Specimen inform ationon 08-05-2024 Appearance (U) cloudy [facility] Color (U) lightyellow [facility] Laboratory - Urinalysison Leukocyte esterase Test strip Ql (U) Positive [facility] Nitrite Ql (U) Negative [facility] Protein Ql (U) ++ [facility] No Panel Informationon 08-05 Urine Occult Blood ++ [facility] U[facility] Office/Clinic Noteon 07-09-2024 Urology Office/Clinic Note Urology Office/Clinic Note Chief Complaint ER f/u HPI Staff 74yr old female pt here for ER f/u. Pt was seen 07/07/24 for left lower quadrant pain, radiating to her left flank. Also had c/o nausea and vomiting. Blood chemistry showed mild acute kidney injury and CAT scan showed 3mm kidney stone in left side causing moderate hydronephrosis. UA was normal She was discharged with Flomax 0.4mg qd, Percocet PRN, & ondansetron PRN Pain has since resolved. Pt has been straining her urine but does not believe she passed stone yet. Dysuria: denies Incomplete bladder emptying: denies Hematuria: denies Frequency: denies Urgency: denies Nocturia: varies, just 1x mostly Stream: has bladder sling that was inserted about 5yrs ago, has been having a start/stop stream, wondering if this is a side effect Leaking: denies Post void dripping: denies Wearing pads/ Depends: denies Urge incontinence: denies Stress incontinence: denies Incontinence without Sensory Awareness: denies Abdominal pain: resolved Flank pain: resolved Sexual complaints: Review of Systems PHQ Score Initial Depression Screen Score: 0 SCORE no fever, chills, malaise, myalgia. no rash/lesions. no chest pain, palpitations, or SOB. no abdominal pain, nausea, vomiting. Physical Exam Vitals & Measurements HR: 87(Peripheral) RR: 18 BP: 125/95 HT: 61 in HT: 155 cm WT: 58.1 kg WT: 128.088 lb BMI: 24.18 General: nontoxic, NAD Mouth: moist mucosa Lungs: normal respiratory effort Cardio: regular rate, good distal perfusion Abdomen: nondistended, no suprapubic distention or tenderness, no CVA tenderness Neurologic: Grossly normal Skin: No rashes or suspicious lesions Assessment/Plan BBSQ 13 good control. 1. Ureteral stone with hydronephrosis (N13.2: Hydronephrosis with renal and ureteral calculous obstruction) [facility] ER 07/07. 3mm UVJ stone. Didn't strain urine that night so may have already passed. Has been straining urine consistently since then but hasn't seen anything. Completely asx since ER visit. Doing well on the Flomax. No bothersome side effects. Discussed risks/benefits of remaining on it to finish the 10d course from ER. Advised if passes stone, can stop med. First stone episode. Switched from Gavascon for reflux to Tums a couple months ago. Realized that this has a lot of calcium, in addition to the calcium she is already taking for bone health. Discussed this could certainly explain the stone formation. Recommended she switch back to Gavascon. Drinks 1c coffee in am, then water the rest of the day, at least 50 oz. If sees it pass, has cup to bring for stone analysis. If no stone passage by day 10 (ER gave her 10d Flomax), will check KUB/SHARLENE to see if she needs refill of Flomax & 3 more weeks to attempt passage. Ordered: E&M of New Patient Moderate 45-59 Min [id number] Orders: Body Mass Index (BMI) documented 3008F Current tobacco non-user 1036F Depression Screening Negative 3352F Influenza immunization status assessed 1030F Medication list documented in medical record 1159F Most recent diastolic blood pressure >=90 mm Hg 3080F Patient screen for fall risk: no falls in last year or 1 fall with no injury in last year 1101F Review of all meds by a prescribing practitioner or clinical pharmacist documented in EHR 1160F Systolic BP <130 mm Hg (Most Recent) 3074F Urnls Dip Stick Auto w/o Microscopy POC 30277 Follow-up With When Contact Information Will reassess situation in 1 week. Additional Instructions: Patient Education Dietary Guidelines to Help Prevent Kidney Stones Problem List/Past Medical History Ongoing Acid reflux High cholesterol Insomnia Osteoporosis Ureteral stone with hydronephrosis Historical No qualifying data Procedure/Surgical History Appendectomy, Bilateral tubal ligation, Cataracts, History of shoulder surgery, Hysterectomy, Tonsillectomy. Medications biotin, 5000 mcg, Oral, Daily calcium (as citrate)-vitamin D 250 mg-200 intl units oral tablet, 1 tab(s), Oral, Daily Centrum, See Instructions collagen topical powder, See Instructions famotidine, 20 mg, Oral, BID Glucosamine Chondroitin, 3 cap(s) latanoprost 0.005% ophthalmic emulsion, 1 drop(s), Eye-Both, qPM magnesium glycinate, 250 mg, Oral, Daily melatonin, 10 mg, Oral, Once a day (at bedtime) Tums, See Instructions Allergies No Known Allergies Social History Alcohol Never., 07/09/2024 Substance Abuse Never., 07/09/2024 Tobacco Never (less than 100 in lifetime) Tobacco Use:. Never Smokeless Tobacco Use:., 07/09/2024 Family History Diabetes mellitus type 2: Mother. Melanoma of skin: Sister. Stroke: Mother. Immunizations Vaccine Date Status Comments influenza virus vaccine, inactivated 02/19/2024 Recorded SARS-CoV-2 (COVID-19) [id number] 10/06/2022 Recorded influenza virus vaccine, inactivated 03/04/2022 Recorded SARS-CoV-2 (COVID-19) [id number] 02/09/2022 Recorded (more content not included)... Normal [facility] Comment on above: Result Comment: Elec tronically Signed By: BIBI WARD PA-C\.thais\Date and Time Signed: 07/09/24 13:12 EST Basophils Auto (Bld) [#/Vol] on 07-07-2024 Basophils (Bld) [#/Vol] Automated basophil count 0.0-0.[address] [facility] Basophils/100 WBC Auto (Bld) on 07-07-2024 Basophils/100 WBC (Bld) Automated basophil % 0.2-2.[address] [facility] Eosinophils/100 WBC Auto (Bl d)on 07-07-2024 Eosinophils/100 WBC (Bld) Automated eosinophil % 0.9-7.[address] [facility] Erythrocyte distribution wid th Auto (RBC) [Ratio]on 07-07-2024 Erythrocyte distribution width (RBC) [Ratio] Erythrocyte distribution width [Ratio] by Automated count 11.0-15.[address] [facility] Estimated glomerular filtrat ion rate (GFR) non- Americanon 07-07-2024 GFR/1.73 sq M.predicted among non-blacks MDRD (S/P/Bld) [Vol rate/Area] Estimated glomerular filtration rate (GFR) non- Low >=60 mL/min/1.73m [address] [facility] Globulin Calc (S) [Mass/Vol] on 07-07-2024 Globulin (S) [Mass/Vol] Serum globulin measurement by calculation (mass/volume) [facility] Hematocrit Auto (Bld) [Volum e fraction]on 07-07-2024 Hematocrit (Bld) [Volume fraction] Hematocrit [Volume Fraction] of Blood by Automated count 36.0-48.[address] [facility] Hemoglobin [Mass/volume] in Bloodon 07-07-2024 Hemoglobin (Bld) [Mass/Vol] Hemoglobin [Mass/volume] in Blood 12.0-16.[address] [facility] Laboratory - Chemistry and C hemistry - challengeon 07-07-2024 Bilirubin Ql (U) Negative NEGATIVE [facility] Glucose (U) [Mass/Vol] Negative NEGATIVE [facility] Ketones Ql (U) TRACE mg/dL Abnormal NEGATIVE [facility] pH (U) 7.0 [pH] 5.0-9.[address] [facility] Specific gravity (U) [Rel density] 1.015 1.005-1.[address] [facility] Urobilinogen Qn (U) 0.2 {Jerman'U}/dL 0.2-1.[address] [facility] Albumin [Mass/Vol] 3.6 g/dL 3.4-5.0 [facility] ALP [Catalytic activity/Vol] 64 U/L 46-[address] [facility] ALT [Catalytic activity/Vol] 22 U/L 14-[address] [facility] AST [Catalytic activity/Vol] 17 U/L 15-[address] [facility] Bilirubin [Mass/Vol] 0.4 mg/dL 0.2-1.0 [facility] Calcium [Mass/Vol] 9.4 mg/dL 8.5-10.1 [facility] Chloride [Moles/Vol] 101 mmol/L 98-107 [facility] CO2 [Moles/Vol] 29.0 mmol/L 21.0-32.0 [facility] Creatinine [Mass/Vol] 1.17 mg/dL High 0.55-1.02 [facility] GFR/1.73 sq M.predicted MDRD (S/P/Bld) [Vol rate/Area] 55 mL/min/{1.73_m2} Low >=60 mL/min/1.73m [address] [facility] Glucose [Mass/Vol] 116 mg/dL High 74-106 [facility] Potassium [Moles/Vol] 3.5 mmol/L 3.5-5.1 [facility] Protein [Mass/Vol] 6.9 g/dL 6.4-8.2 [facility] Sodium [Moles/Vol] 137 mmol/L 136-145 [facility] Urea nitrogen [Mass/Vol] 25.0 mg/dL High 7.0-18.[address] [facility] Urea nitrogen/Creatinine [Mass ratio] 21.4 mg/mg [facility] Laboratory - Hematology and Cell countson 07-07-2024 Immature granulocytes/100 WBC (Bld) 0.2 % 0.0-0.[address] [facility] Laboratory - Specimen inform ationon 07-07-2024 Appearance (U) CLEAR CLEAR [facility] Color (U) LT. YELLOW YELLOW [facility] Laboratory - Urinalysison Leukocyte esterase Test strip Ql (U) Negative NEGATIVE [facility] Nitrite Ql (U) Negative NEGATIVE [facility] Protein Ql (U) Negative NEG/TRACE [facility] Leukocytes [#/volume] correc chuy for nucleated erythrocytes in Blood by Automated counon 07-07-2024 WBC corrected for nucl RBC Auto (Bld) [#/Vol] Leukocytes [#/volume] corrected for nucleated erythrocytes in Blood by Automated coun 4.0-11.[address] [facility] Lymphocytes Auto (Bld) [#/Vo l]on 07-07-2024 Lymphocytes (Bld) [#/Vol] Lymphocytes [#/volume] in Blood by Automated count 1.2-3.[address] [facility] Lymphocytes/100 WBC Auto (Bl d)on 07-07-2024 Lymphocytes/100 WBC (Bld) Lymphocytes/100 leukocytes in Blood by Automated count 20.5-60.[address] [facility] MCH Auto (RBC) [Entitic mass ]on 07-07-2024 MCH (RBC) [Entitic mass] MCH [Entitic mass] by Automated count 26.7-34.[address] [facility] MCHC Auto (RBC) [Mass/Vol]on 07-07-2024 MCHC (RBC) [Mass/Vol] MCHC [Mass/volume] by Automated count 29.9-35.[address] [facility] MCV Auto (RBC) [Entitic vol] on 07-07-2024 MCV (RBC) [Entitic vol] MCV [Entitic volume] by Automated count 81.0-99.[address] [facility] Monocytes Auto (Bld) [#/Vol] on 07-07-2024 Monocytes (Bld) [#/Vol] Automated blood monocyte count 0.3-0.[address] [facility] Monocytes/100 WBC Auto (Bld) on 07-07-2024 Monocytes/100 WBC (Bld) Automated monocyte % 1.7-12.[address] [facility] Neutrophils Auto (Bld) [#/Vo l]on 07-07-2024 Neutrophils (Bld) [#/Vol] Neutrophils [#/volume] in Blood by Automated count 1.4-6.[address] [facility] Neutrophils/100 WBC Auto (Bl d)on 07-07-2024 Neutrophils/100 WBC (Bld) Automated neutrophil % 43.0-75.[address] [facility] No Panel Informationon 07-07 Urine Microscopic Review NO [facility] Urine Occult Blood Negative NEGATIVE [facility] Eosinophils # (Auto) 0.1 10 3/uL 0.0-0.7 [facility] Immature Granulocyte # (Auto) 0.01 10 3/uL 0.00-0.[address] [facility] Platelet mean volume Auto (B ld) [Entitic vol]on 07-07-2024 Platelet mean volume (Bld) [Entitic vol] Platelet mean volume [Entitic volume] in Blood by Automated count 9.5-13.[address] [facility] Platelets Auto (Bld) [#/Vol] on 07-07-2024 Platelets (Bld) [#/Vol] Platelets [#/volume] in Blood by Automated count 150-[address] [facility] RBC Auto (Bld) [#/Vol]on RBC (Bld) [#/Vol] Erythrocytes [#/volume] in Blood by Automated count Low 4.20-5.[address] [facility] Serum or plasma albumin/glob ulin mass ratioon 07-07-2024 Albumin/Globulin [Mass ratio] Serum or plasma albumin/globulin mass ratio [facility] Serum or plasma anion gap de terminationon 07-07-2024 Anion gap [Moles/Vol] Serum or plasma anion gap determination [facility] CT CHEST WO CONon 05-10-2022 CT CHEST [...] by: KEY BROWN Date: 2022-05-10 12:14 Normal [facility] Vital Signs Date Time Vital Sign Value Performing Clinician Kimberlee andersen 03-12-2025 14:37-0400 Body weight 55.79 kg Mitchell Nelson MD Work Phone: [facility] 03-12-2025 14:37-0400 Diastolic blood pressure 76 mm[Hg] Mitchell Nelson MD Work Phone: [facility] 03-12-2025 14:37-0400 Systolic blood pressure 122 mm[Hg] Mitchell Nelson MD Work Phone: [facility] 03-11-2025 14:31-0400 Body height 154.94 cm Prabhjot Ball DO Work Phone: [facility] 03-11-2025 14:31-0400 Body mass index (BMI) [Ratio] 23.4 kg/m2 Prabhjot Ball DO Work Phone: [facility] 03-11-2025 14:31-0400 Body weight 56.3 kg Prabhjot Ball DO Work Phone: [facility] 03-11-2025 14:31-0400 Diastolic blood pressure 89 mm[Hg] Prabhjot Ball DO Work Phone: [facility] 03-11-2025 14:31-0400 Heart rate 84 /min Prabhjot Ball DO Work Phone: [facility] 03-11-2025 14:31-0400 Respiratory rate 14 /min Prabhjot Ball DO Work Phone: [facility] 03-11-2025 14:31-0400 SaO2% (BldA) [Mass fraction] 99 % Prabhjot Ball DO Work Phone: [facility] 03-11-2025 14:31-0400 Systolic blood pressure 137 mm[Hg] Prabhjot Ball DO Work Phone: [facility] 07-09-2024 10:45-0500 Blood Pressure Location BIBI WARD [facility] 07-09-2024 10:45-0500 Diastolic blood pressure 95 mm[Hg] BIBI WARD [facility] 07-09-2024 10:45-0500 Heart rate 87 /min BIBI WARD [facility] 07-09-2024 10:45-0500 Respiratory rate 18 /min BIBI WARD [facility] 07-09-2024 10:45-0500 Systolic blood pressure 125 mm[Hg] BIBI WARD [facility] 03-01-2024 11:11-0400 Body height 154.94 cm [facility] 03-01-2024 11:11-0400 Body mass index (BMI) [Ratio] 23.8 kg/m2 [facility] 03-01-2024 11:11-0400 Body weight 57.15 kg [facility] 03-01-2024 11:11-0400 Diastolic blood pressure 85 mm[Hg] [facility] 03-01-2024 11:11-0400 Heart rate 76 /min [facility] 03-01-2024 11:11-0400 Respiratory rate 12 /min [facility] 03-01-2024 11:11-0400 Systolic blood pressure 135 mm[Hg] [facility] Encounters Encounter Date Encounter Type Care Provider Facility Start: 08-21-2025 ambulatory BIBI Pate ED Rupali ty:[facility] [place] Start: 03-12-2025 End: 03-12-2025 Office outpatient new 45 minutes Mitchell Nelson MD Work Phone: [facility] Comment on above: Left lower quadrant pain (Primary Dx); Abdominal bloating Start: 03-12-2025 End: 03-12-2025 Bamboo flowsheet Mitchell Nelson MD Work Phone: [facility] Start: 03-12-2025 End: 03-12-2025 Bamboo flowsheet Mitchell Nelson MD Work Phone: [facility] Start: 03-11-2025 End: 03-11-2025 ambulatory Prabhjot Hess DO Work Phone: [facility] Work Phone: Start: 03-11-2025 End: 03-11-2025 Patient encounter procedure Prabhjot Hess DO -[facility] Work Phone: Start: 08-15-2024 End: 08-15-2024 ambulatory Bibi Ward Facility:[facility] Start: 08-15-2024 Non-patient / Non-visit [facility] Work Phone: Start: 08-05-2024 End: 08-05-2024 ambulatory [facility] Work Phone: Start: 08-05-2024 End: 08-05-2024 Patient encounter procedure [facility] Work Phone: Start: 07-09-2024 Non-patient / Non-visit [facility] Work Phone: Start: 07-09-2024 End: 07-09-2024 ambulatory BIBI WARD Facility:[facility] Start: 07-09-2024 End: 07-09-2024 Patient encounter procedure BIBI BULLARDRY [facility] Start: 07-07-2024 Non-patient / Non-visit [facility] Work Phone: Start: 03-01-2024 End: 03-01-2024 ambulatory [facility] Work Phone: Start: 03-01-2024 End: 03-01-2024 Patient encounter procedure [facility] Work Phone: Start: 02-28-2024 Patient encounter procedure [facility] Start: 02-19-2024 End: 02-19-2024 ambulatory [facility] Work Phone: Start: 02-19-2024 End: 02-19-2024 Patient encounter procedure [facility] Work Phone: Start: 02-17-2023 End: 02-17-2023 ambulatory Prabhjot Hess Other [employer] Other Start: 02-17-2023 Nursing evaluation o f patient and report Prabhjot Hess [facility] Start: 02-03-2023 End: 02-03-2023 ambulatory Prabhjot Hess Other [employer] Other Start: 02-03-2023 Telephone encounter Prabhjot FOREMAN [facility] Start: 01-16-2023 End: 01-16-2023 ambulatory Prabhjot Hess Other [employer] Other Start: 01-16-2023 Telephone encounter Prabhjot Perry [facility] Start: 05-10-2022 End: 05-11-[address] PRABHJOT HESS Facility:[facility] Start: 08-04-2021 End: 09-28-[address] DOCTOR RIOS Facility:[facility] Procedures Date Procedure Procedure Detail Performing Clinician Appendectomy BIBI WARD Bilateral cataracts (disorder) BIBI WARD Bilateral tubal ligation GINA WARD History of operative procedure on shoulder BIBI WADR Hysterectomy BIBI WARD Tonsillectomy BIBI WARD Plan of Treatment Date Care Activity Detail Author Start: 03-28-2025 End: 03-28-2025 Professional / ancillary services management 03/28/2025 10:30 AM EDT Ancillary Procedure [facility] M[facility]ENDE[facility] [address] [place] [phone] M[facility] M[facility]ENDE[facility] Start: 03-12-2025 End: 10-15-2025 Patient encounter procedure 03/12/2025 2:30 PM EDT Office Visit [facility] MENEN[facility] [address] [place] [phone] Mitchell Nelson MD [address] [place] [address] Well woman exam with routine gynecological exam; Cervical cancer screening; Screening for HPV (human papillomavirus); Other screening mammogram M[facility] MENENDEZ Comment on above: Well woman exam with routine gynecological exam; Cervical cancer screening; Screening for HPV (human papillomavirus); Other screening mammogram Start: 01-27-2025 Influenza vaccination Influenza Vacc ine (#1) [facility] Start: 08-15-2024 Urine culture [facility] Start: 1991 Screening for malign ant neoplasm of breast Mammogram [facility] Start: 1950 Screening for malign ant neoplasm of colon [facility] Comprehensive metabo lic 2000 panel - Serum or Plasma [facility] MG Breast - bilatera l Screening [facility] MG Breast - bilatera l Screening [facility] US scan of abdominal aorta [facility] Immunizations Immunization Date Immunization Notes Care Provider Attila moreno 03-11-2025 influenza, high dose seasonal, preservative-free Prabhjot Ball DO Work Phone: [facility] 02-19-2024 influenza virus vaccine, unspecified formulation BIBI WARD [facility] 02-19-2024 influenza, high dose seasonal, preservative-free [facility] 02-17-2023 influenza virus vaccine, unspecified formulation [facility] 02-17-2023 influenza, high dose seasonal, preservative-free Prabhjot Ball Other [employer] Other 10-06-2022 SARS-CoV-2 (COVID-19 ) [id number] BIBI WARD [facility] 03-04-2022 influenza virus vaccine, unspecified formulation [facility] 03-04-2022 influenza, high dose seasonal, preservative-free Prabhjot Hess Other [employer] Other 02-09-2022 SARS-CoV-2 (COVID-19 ) [id number] BIBI WARD [facility] 03-19-2021 influenza virus vaccine, split virus (incl. purified surface antigen) Prabhjot Hess Other [employer] Other 03-19-2021 influenza virus vaccine, unspecified formulation [facility] 03-05-2021 SARS-CoV-2 (COVID-19 ) mRNA BNT-162b2 [employer] BIBI WARD [facility] Comment on above: Result Comment: 2024: [id number] 07-31-2020 SARS-CoV-2 (COVID-19 ) mRNA BNT-162b2 vax BIBI WARD [facility] 07-10-2020 SARS-CoV-2 (COVID-19 ) mRNA BNT-162b2 [employer] BIBI WARD [facility] 03-10-2020 influenza virus vaccine, split virus (incl. purified surface antigen) Prahbjot Hess Other [employer] Other 03-10-2020 influenza virus vaccine, unspecified formulation [facility] 03-11-2019 influenza virus vaccine, split virus (incl. purified surface antigen) Prabhjot Hess Other [employer] Other 03-11-2019 influenza virus vaccine, unspecified formulation [facility] 05-08-2018 pneumococcal polysaccharide vaccine, 23 valent Prabhjot Hess Other [facility] 03-28-2018 influenza virus vaccine, unspecified formulation BIBI WARD [facility] 02-07-2018 influenza virus vaccine, split virus (incl. purified surface antigen) Prabhjot Hess Other [employer] Other 02-07-2018 influenza virus vaccine, unspecified formulation [facility] 06-20-2017 influenza virus vaccine, split virus (incl. purified surface antigen) Prabhjot Hess Other [employer] Other 06-20-2017 influenza virus vaccine, unspecified formulation [facility] 04-25-2017 pneumococcal conjuga te vaccine, 13 valent Prabhjot Hess Other [facility] 03-22-2014 influenza virus vaccine, unspecified formulation BIBI WARD [facility] Payers Date Payer Category Payer Self-pay 2021 Private Health Insurance [employer] [place] [id number] 2016 Medicare MEDICARE [id number] 1959 Medicare [id number] 1959 Unknown [id number] 1950 Unknown [id number] 1950 Unknown [id number] 1950 Unknown [id number] 1950 Unknown [id number] Medicare [id number] Unknown [id number] Social History Date Type Detail Facility Start: 02-21-2025 End: 03-12-2025 Sex Assigned At [facility] Start: 1950 Sex Assigned At Female F [facility] Start: 07-09-2024 End: 02-21-2025 Tobacco smoking status Never smoked tobacco (finding) [facility] Start: 08-10-2022 Tobacco smoking status Never [facility] Tobacco smoking stat [facility] Unknown if ever smoked [facility] Work Phone: Start: 08-05-2024 End: 08-16-2024 Sex Female (finding) [facility] Start: 02-21-2025 Tobacco use and exposure Smokeless tobacco non-user [facility] Start: 02-21-2025 End: 03-12-2025 Alcoholic beverage intake Current drinker of alcohol (finding) [facility] Start: 02-21-2025 End: 03-12-2025 History of Social function [facility] Start: 1950 Sex assigned at Not on file [facility] Start: 03-06-2025 Gender identity Identifies as female gender (finding) [facility] Start: 03-12-2025 Alcohol Comment Rarely [facility] Functional Status Date Assessment Result Facility 07-09-2024 Functional Status N/A [facility] Clinical Notes 07-09-2024 to 03-12-2025 Mitchell Nelson MD - 03/12/2025 2:30 PM EDT Note Date & Type Note Facility 03-12-2025 History of Presen t illness Narrative Mitchell Nelson MD Obstetrics and Gynecology Patient: Mona Thrasher, : 1950 (74 y.o.) DOS 03/12/25 Exam Date: 03/12/2025 HPI: Establishing care. She c/o vague LLQ discomfort. She c/o abd bloating and increasing girth. She has had hysterectomy, but she does not know about her ovaries. She had a CT in Jun 2024 that was NORMAL except for a kidney stone Visit Vitals BP 122/76 Wt 123 lb OB Status Hysterectomy Smoking Status Never OB History Para Term AB Living 2 2 2 0 0 2 SAB IAB Ectopic Multiple Live Births 0 0 0 0 2 # Outcome Date GA Lbr Aristides/2nd Weight Sex Type Anes PTL Lv 2 Term 1 Term Obstetric Comments Pap: Not up to date/no abnormal Mammo: Year ago/normal Hysterectomy Medication and Allergies Medication Documentation Review Audit Reviewed by Carrie Melgar MA ([employer] Settlement Clerk) on 03/12/25 at 1440 Medication Order Taking? Sig Documenting Provider Last Dose Status latanoprost (Xalatan) 0.005 % ophthalmic solution [id number] Yes INSTILL 1 DROP INTO BOTH EYES EVERY EVENING DIRECTED Mitchell Nelson MD Active Allergies[1] Medical History[2] Surgical History[3] Physical Exam: Objective Physical Exam Constitutional: Appearance: Normal appearance. Genitourinary: Vulva normal. Vaginal cuff intact. No vaginal discharge or bleeding. Right Adnexa: not palpable. Left Adnexa: not palpable. Cervix is absent. Uterus is absent. Pulmonary: Effort: Pulmonary effort is normal. Abdominal: General: Abdomen is flat. Palpations: Abdomen is soft. Tenderness: There is no abdominal tenderness. There is no guarding or rebound. Neurological: Mental Status: She is alert. Assessment/Plan ICD-10-CM 1. Left lower quadrant pain R10.32 2. Abdominal bloating R14.0 Her exam is normal. Check pelvic sono. If neg, will aske her to see GI No orders of the defined types were placed in this encounter. [1] No Known Allergies [2] Past Medical History: Diagnosis Date Adult idiopathic generalized osteoporosis Fibrocystic breast History of prolapse of bladder 2017 History of uterine prolapse 2017 Ovarian cyst 1977 Urinary tract infection 1971 Uterine prolapse 2017 [3] Past Surgical History: Procedure Laterality Date APPENDECTOMY BLADDER SUSPENSION 2017 BREAST BIOPSY BUNIONECTOMY CATARACT EXTRACTION SECTION, LOW TRANSVERSE 1976 DILATION AND CURETTAGE OF UTERUS EYE SURGERY HYSTERECTOMY 2017 Bladder and rectocele repair OTHER SURGICAL HISTORY Left Shoulder OTHER SURGICAL HISTORY Left Knee arthroscopy OTHER SURGICAL HISTORY Shoulder TUBAL LIGATION VAGINAL DELIVERY documented in this encounter [facility] 07-09-2024 Hospital Discharg e instructions Patient Education 07/09/2024 13:10:41 Dietary Guidelines to Help Prevent Kidney Stones Dietary Guidelines to Help Prevent Kidney Stones Kidney stones are deposits of minerals and salts that form inside your kidneys. Your risk of developing kidney stones may be greater depending on your diet, your lifestyle, the medicines you take, and whether you have certain medical conditions. Most people can lower their risks of developing kidney stones by following these dietary guidelines. Your dietitian may give you more specific instructions depending on your overall health and the type of kidney stones you tend to develop. What are tips for following this plan? Reading food labels Choose foods with no salt added or low-salt labels. Limit your salt (sodium) intake to less than 1,500 mg a day. Choose foods with calcium for each meal and snack. Try to eat about 300 mg of calcium at each meal. Foods that contain 200 500 mg of calcium a serving include: ?8 oz (237 mL) of milk, nvepjyi-brzpgoroppyu-cabsg milk, and calcium-fortifiedfruit juice. Calcium-fortified means that calcium has been added to these drinks. ?8 oz (237 mL) of kefir, yogurt, and soy yogurt. ?4 oz (114 g) of tofu. ?1 oz (28 g) of cheese. ?1 cup (150 g) of dried figs. ?1 cup (91 g) of cooked broccoli. ?One 3 oz (85 g) can of sardines or mackerel. Most people need 1,000 1,500 mg of calcium a day. Talk to your dietitian about how much calcium is recommended for you. Shopping Buy plenty of fresh fruits and vegetables. Most people do not need to avoid fruits and vegetables, even if these foods contain nutrients that may contribute to kidney stones. When shopping for convenience foods, choose: ?Whole pieces of fruit. ?Pre-made salads with dressing on the side. ?Low-fat fruit and yogurt smoothies. Avoid buying frozen meals or prepared deli foods. These can be high in sodium. Look for foods with live cultures, such as yogurt and kefir. Choose high-fiber grains, such as whole-wheat breads, oat bran, and wheat cereals. Cooking Do not add salt to food when cooking. Place a salt shaker on the table and allow each person to add their own salt to taste. Use vegetable protein, such as beans, textured vegetable protein (TVP), or tofu, instead of meat in pasta, casseroles, and soups. Meal planning Eat less salt, if told by your dietitian. To do this: ?Avoid eating processed or pre-made food. ?Avoid eating fast food. Eat less animal protein, including cheese, meat, poultry, or fish, if told by your dietitian. To do this: ?Limit the number of times you have meat, poultry, fish, or cheese each week. Eat a diet free of meat at least 2 days a week. ?Eat only one serving each day of meat, poultry, fish, or seafood. ?When you prepare animal proteins, cut pieces into small portion sizes. For most meat and fish, one serving is about the size of the palm of your hand. Eat at least five servings of fresh fruits and vegetables each day. To do this: ?Keep fruits and vegetables on hand for snacks. ?Eat one piece of fruit or a handful of berries with breakfast. ?Have a salad and fruit at lunch. ?Have two kinds of vegetables at dinner. You may be told to limit foods that are high in a substance called oxalate. These include: ?Spinach (cooked), rhubarb, beets, sweet potatoes, and [place] chard. ?Peanuts. ?Potato chips, andorran fries, and baked potatoes with skin on. ?Nuts and nut products. ?Chocolate. If you regularly take a diuretic medicine, make sure to eat at least 1 or 2 servings of fruits or vegetables that are high in potassium each day. These include: ?Avocado. ?Banana. ?Sharp, prune, carrot, or tomato juice. ?Baked potato. ?Cabbage. ?Beans and split peas. Lifestyle Drink enough fluid to keep your urine pale yellow. This is the most important thing you can do. Spread your fluid intake throughout the day. If you drink alcohol: ?Limit how much you have to: ?0 1 drink a day for women who are not . ?0 2 drinks a day for men. ?Know how much alcohol is in your drink. In the [place] one drink equals one 12 oz bottle of beer (355 mL), one 5 oz glass of wine (148 mL), or one 1 oz glass of hard liquor (44 mL). Lose weight if told by your health care provider. Work with your dietitian to find an eating plan and weight loss strategies that work best for you. General information Talk to your health care provider and dietitian about taking daily supplements. Depending on your health and the cause of your kidney stones, you may be told: ?Do not take high-dose supplements of vitamin C (1,000 mg a day or more). ?To take a calcium supplement. ?To take a daily probiotic supplement. ?To take other supplements such as magnesium, fish oil, or vitamin B6. Take lzty-jqi-ozetidv and prescription medicines only as told by your health care provider. These include supplements. What foods should I limit? Limit your intake of the following foods, or eat them as told by your dietitian. Vegetables Spinach. Rhubarb. Beets. Canned vegetables. Pickles. Olives. Baked potatoes with skin. Grains Wheat bran. Baked goods. Salted crackers. Cereals high in sugar. Meats and other proteins Nuts. Nut butters. Large portions of meat, poultry, or fish. Salted, precooked, or cured meats, such as sausages, meat loaves, and hot dogs. Dairy Cheeses. Beverages Regular soft drinks. Regular vegetable juice. Seasonings and condiments Seasoning blends with salt. Salad dressings. Soy sauce. Ketchup. Barbecue sauce. Other foods Canned soups. Canned pasta sauce. Casseroles. Pizza. Lasagna. Frozen meals. Potato chips. [place] fries. The items listed above may not be a complete list of foods and beverages you should limit. Contact a dietitian for more information. What foods should I avoid? Talk to your dietitian about specific foods you should avoid based on the type of kidney stones you have and your overall health. Fruits Grapefruit. The item listed above may not be a complete list of foods and beverages you should avoid. Contact a dietitian for more information. Summary Kidney stones are deposits of minerals and salts that form inside your kidneys. You can lower your risk of kidney stones by making changes to your diet. The most important thing you can do is drink enough fluid. Drink enough fluid to keep your urine pale yellow. Talk to your dietitian about how much calcium you should have each day, and eat less salt and animal protein as told by your dietitian. This information is not intended to replace advice given to you by your health care provider. Make sure you discuss any questions you have with your health care provider. Document Revised: 08/25/2022 Document Reviewed: 08/25/2022 [employer] Patient Education 2023 [employer]. Follow Up Care 07/08/2024 09:58:25 With:Will reassess situation in 1 week. Address:Unknown When: Unknown [facility] 07-09-2024 Note Patient Education Nephrology Dietary Guidelines to Help Prevent Kidney Stones Kidney stones are deposits of minerals and salts that form inside your kidneys. Your risk of developing kidney stones may be greater depending on your diet, your lifestyle, the medicines you take, and whether you have certain medical conditions. Most people can lower their risks of developing kidney stones by following these dietary guidelines. Your dietitian may give you more specific instructions depending on your overall health and the type of kidney stones you tend to develop. What are tips for following this plan? Reading food labels ??? Choose foods with no salt added or low-salt labels. Limit your salt (sodium) intake to less than 1,500 mg a day. ??? Choose foods with calcium for each meal and snack. Try to eat about 300 mg of calcium at each meal. Foods that contain 200?500 mg of calcium a serving include: ? 8 oz (237 mL) of milk, exuhoxg-uabgvuiogcde-fbgxk milk, and calcium-fortifiedfruit juice. Calcium-fortified means that calcium has been added to these drinks. ? 8 oz (237 mL) of kefir, yogurt, and soy yogurt. ? 4 oz (114 g) of tofu. ? 1 oz (28 g) of cheese. ? 1 cup (150 g) of dried figs. ? 1 cup (91 g) of cooked broccoli. ? One 3 oz (85 g) can of sardines or mackerel. Most people need 1,000?1,500 mg of calcium a day. Talk to your dietitian about how much calcium is recommended for you. Shopping ??? Buy plenty of fresh fruits and vegetables. Most people do not need to avoid fruits and vegetables, even if these foods contain nutrients that may contribute to kidney stones. ??? When shopping for convenience foods, choose: ? Whole pieces of fruit. ? Pre-made salads with dressing on the side. ? Low-fat fruit and yogurt smoothies. ??? Avoid buying frozen meals or prepared deli foods. These can be high in sodium. ??? Look for foods with live cultures, such as yogurt and kefir. ??? Choose high-fiber grains, such as whole-wheat breads, oat bran, and wheat cereals. Cooking ??? Do not add salt to food when cooking. Place a salt shaker on the table and allow each person to add their own salt to taste. ??? Use vegetable protein, such as beans, textured vegetable protein (TVP), or tofu, instead of meat in pasta, casseroles, and soups. Meal planning ??? Eat less salt, if told by your dietitian. To do this: ? Avoid eating processed or pre-made food. ? Avoid eating fast food. ??? Eat less animal protein, including cheese, meat, poultry, or fish, if told by your dietitian. To do this: ? Limit the number of times you have meat, poultry, fish, or cheese each week. Eat a diet free of meat at least 2 days a week. ? Eat only one serving each day of meat, poultry, fish, or seafood. ? When you prepare animal proteins, cut pieces into small portion sizes. For most meat and fish, one serving is about the size of the palm of your hand. ??? Eat at least five servings of fresh fruits and vegetables each day. To do this: ? Keep fruits and vegetables on hand for snacks. ? Eat one piece of fruit or a handful of berries with breakfast. ? Have a salad and fruit at lunch. ? Have two kinds of vegetables at dinner. ??? You may be told to limit foods that are high in a substance called oxalate. These include: ? Spinach (cooked), rhubarb, beets, sweet potatoes, and [place] chard. ? Peanuts. ? Potato chips, andorran fries, and baked potatoes with skin on. ? Nuts and nut products. ? Chocolate. ??? If you regularly take a diuretic medicine, make sure to eat at least 1 or 2 servings of fruits or vegetables that are high in potassium each day. These include: ? Avocado. ? Banana. ? Sharp, prune, carrot, or tomato juice. ? Baked potato. ? Cabbage. ? Beans and split peas. Lifestyle ??? Drink enough fluid to keep your urine pale yellow. This is the most important thing you can do. Spread your fluid intake throughout the day. ??? If you drink alcohol: ? Limit how much you have to: ? 0?1 drink a day for women who are not . ? 0?2 drinks a day for men. ? Know how much alcohol is in your drink. In the [place] one drink equals one 12 oz bottle of beer (355 mL), one 5 oz glass of wine (148 mL), or one 1? oz glass of hard liquor (44 mL). ??? Lose weight if told by your health care provider. Work with your dietitian to find an eating plan and weight loss strategies that work best for you. General information ??? Talk to your health care provider and dietitian about taking daily supplements. Depending on your health and the cause of your kidney stones, you may be told: ? Do not take high-dose supplements of vitamin C (1,000 mg a day or more). ? To take a calcium supplement. ? To take a daily probiotic supplement. ? To take other supplements such as magnesium, fish oil, or vitamin B6. ??? Take [id number] and prescription medicines only as told by your health (more content not included)... [facility] Chief complaint+Reason for visit Narrative Reason for Visit Immunization due Family history of diabetes mellitus JONATHON (generalized anxiety disorder) GERD (gastroesophageal reflux disease) Hypercholesterolemia Medicare annual wellness visit, subsequent Screening mammogram for breast cancer [facility] Work Phone: Evaluation + Plan note No data available for this section [facility] [place] evaluation noteNo Information[employer] Other Evaluation noteNo assessment information available [facility] Work Phone: Evaluation note* Diagnosis Onset Date Resolution Status Immunization due noneactive Family history of diabetes mellitus acute JONATHON (generalized anxiety disorder) acute GERD (gastroesophageal reflux disease) acute Hypercholesterolemia acute Medicare annual wellness visit, subsequent acute Screening mammogram for breast cancer acute [facility] Work Phone: Evaluation note* Diagnosis Onset Date Resolution Status Admit Date Family history of diabetes mellitus acute March 11, 2025 2:26pm JONATHON (generalized anxiety disorder) a cute March 11, 2025 2:26pm GERD (gastroesophageal reflu x disease) acute March 11 2:26pm Hypercholesterolemia acute Febo 2024 2:26pm Medicare annual wellness vis it, subsequent acute March 11 2:26pm Nephrolithiasis acute February 262024 2:26pm Screening mammogram for [facility] cancer acute March 11 2:26pm [facility] Work Phone: Evaluation note* Diagnosis Left lower quadrant pain- Primary Abdominal pain, left lower quadrant Abdominal bloating Flatulence, eructation, and gas pain documented in this encounter [facility] - Reported* Type Description Date Medical History Palpitations Medical History Generalized anxiety disorder Medical History Hyperlipidemia, unspecified Medical History [place] Medical History Solitary lung nodule Surgical History LAN/BSO 2017 Surgical History REVERSE TOTAL REPLACEMENT OF LE FT SHOULDER JOINT Surgical History TONSILLECTOMY Surgical History APPENDECTOMY Surgical History ARTHROSCOPY, SHOULDER, BILATERA L Hospitalization History SEE SURIGICAL HX [employer] Other Progress note No data available for this section [facility] reason for referral (narrative)No reason for referral [facility] Summary Purpose Family History Relationship Condition Age at Onset Recorded Date/T mamta mother Diabetes mellitus Unknown Unknown sister Malignant melanoma Unknown Malignant neoplasm Unknown Advance Directives Advance Directive Response Recorded Date/ Time Advance Directives No January 10:09am Chief Complaint and Reason for Visit Chief Complaint flu shot Chief Complaint Admit Date Amb Documentation July 09, 2024 1:52pm urine sample, burning August 05, 2024 1 1:25am Chief Complaint Admit Date Wellness March 11, [...] for breast cancer [facility] tober 2024 2:26pm Additional Source Comments INFORMATION SOURCE (unrecogn ized section and content) DATE CREATED AUTHOR 05/20/2022 [facility] DATE CREATED AUTHOR AUTHOR'S ORGANIZ ATION 08/17/[address] [facility] DATE CREATED AUTHOR AUTHOR'S ORGANIZ ATION 08/21/2024 [facility] REASON FOR VISIT (unrecogniz ed section and content) Lab ResultsCologuard results flu shot Care Teams (unrecognized sec tion and content) Team Status: Active Member Role Status Dates Prabhjot Hess DO Primary Care Provider Active Team Status: Inactive Member Role Status Dates Prabhjot Hess , Primary Care Provider Active Start: March 11, 2025 End: March 11, 2025 Prabhjot Hess , Attending Provider Active Sta rt: March 11, 2025 End: March 11, 2025 Team Status: Active Member Role Status Dates Prabhjot Deshawn , DO Primary Care Provider Active Start: July 07, 2024 Gracie Sandoval MD Attending Provider Active Sta rt: July 07, 2024 Team Status: Active Member Role Status Dates Prabhjot Deshawn , Primary Care Provider Active Start: July 09, 2024 Anjelica Singh CMA Attending Provider Active Start: July 09, 2024 Team Status: Inactive Member Role Status Dates Prabhjot DO Deshawn Primary Care Provide r, Attending Provider Active Start: August 05, 2024 End: August 05, 2024 Team Status: Inactive Member Role Status Dates Prabhjot Deshawn , DO Primary Care Provide r, Attending Provider Active Start: February 19, 2024 End: February 19, 2024 Team Status: Inactive Member Role Status Dates Prabhjot Hess DO Primary Care Provide r, Attending Provider Active Start: March 01, 2024 End: March 01, 2024 Team Status: Active Member Role Status Dates Prabhjot Hess , DO Primary Care Provider Active Start: August 15, 2024 Bibi Ward PA-C Attending Provider Active Start: August 15, 2024 [employer] Relationship Specialty Start Date End Date Unallocated, Melani Merrill MD [address] [place] [id number] PCP - General Family Medicine 03/06/25 [employer] Relationship Specialty Start Date End Date Unallocated, Melani Merrill MD [address] [place], [place] [address] [address] PCP - General Family Medicine 03/06/25 Goals (unrecognized section and content) Goals may [...] BE BASED ON THE PRIMARY CLINICAL RECORDS. [facility]. provides no warranty or guarantee of the accuracy or completeness of information in this document.
[2025-03-14 10:55] LABS: Hematocrit 37.9 % (36.0-48.0); Hemoglobin 13.1 g/dL (12.0-16.0); Immature Granulocytes Abs Auto 0.01 10^3/uL (0.00-0.03); Immature Granulocytes Pct Auto 0.3 % (0.0-0.5); Lymphocytes Absolute Auto 1.2 10^3/uL (1.2-3.8); Mean Corpuscular HGB Conc 34.6 g/dL (29.9-35.2); Mean Corpuscular Hemoglobin 32.8 pg (26.7-34.0); Mean Corpuscular Volume 95.0 fL (81.0-99.0); Platelet Count 177 10^3/uL (150-450); Red Blood Count 3.99 10^6/uL (4.20-5.40); White Blood Count 3.6 10^3/uL (4.0-11.0)
[2025-03-14 11:18] LABS: Glucose Urine UA NEGATIVE (NEGATIVE)
[2025-03-14 12:42] LABS: Anion Gap 8.6; Blood Urea Nitrogen 19.0 mg/dL (7.0-18.0); Calcium 9.1 mg/dL (8.5-10.1); Carbon Dioxide 29.9 mmol/L (21.0-32.0); Chloride 107 mmol/L (98-107); Estimated GFR (African America >60 (>=60 mL/min/1.73m^2); Estimated GFR (Non-African Ame >60 (>=60 mL/min/1.73m^2); Glucose 86 mg/dL (74-106); Potassium 3.5 mmol/L (3.5-5.1); Sodium 142 mmol/L (136-145)
[2025-03-14 12:43] LABS: Alanine Aminotransferase 27 U/L (14-59); Albumin Globulin Ratio 0.9; Albumin Level 3.5 g/dL (3.4-5.0); Alkaline Phosphatase 65 U/L (46-116); Aspartate Amino Transferase 16 U/L (15-37); Cholesterol 284 mg/dL (<=200); Globulin 3.7 g/dL; HDL Cholesterol 56 mg/dL (40-60); Thyroid Stimulating Hormone 2.174 uIU/mL (0.358-3.740); Total Protein 7.2 g/dL (6.4-8.2); Triglycerides 126 mg/dL (<=150); VLDL CHOLESTEROL 25.2 mg/dL
== END 2025-03-14 10:12 | disposition home or self-care (01) ==
PROVIDERS: PCP Internal Medicine; Visit Provider Internal Medicine
DX: N20.0 Calculus of kidney (principal); Z83.3 Family history of diabetes mellitus; E78.00 Pure hypercholesterolemia, unspecified; R53.83 Other fatigue
CPT/HCPCS: 36415; 80053; 80061; 81003; 84443; 85025

== ENCOUNTER 2025-03-19 14:16 | Outpatient (OUT) | payer MEDICARE, OTHER, SELFPAY ==
--- OUTSIDE RECORDS SUMMARY | 2025-03-11 11:15 | XMS_ITS | Continuity of Care Document ---
Author Organization [facility] Address [address] [place] [address] Phone Care Team Providers Care County Administrator Name Role Phone Prabhjot Hess DO Primary Care Provider Prabhjot Hess DO Attending Provider [phone] Care Teams Patient Care Team Team Status: Active Member Role Status Dates Prabhjot Hess DO Primary Care Provider Active Patient Care Team Team Status: Inactive Member Role Status Dates Prabhjot Hess DO Primary Care Provider Active Start: March 11, 2025 End: March 11enjamaryellen Hess DOAttending ProviderActiveStart: March 11, 2025 End: March 11, 2025 Chief Complaint and Reason for Visit Chief Complaint Admit Date Wellness March 11, 2025 2 :26pm Reason for Visit Admit Date Family history of diabetes mellitus Octo chantale 2024 2:26pm JONATHON (generalized anxiety disorder) Octob er 2024 2:26pm GERD (gastroesophageal reflux disease) O ctober 2024 2:26pm Hypercholesterolemia March 11, 2025 2:26pm Medicare annual wellness visit, subseque nt March 11, 2025 2:26pm Nephrolithiasis March 11, 2025 2 :26pm Screening mammogram for breast cancer Oc tober 2024 2:26pm Allergies, Adverse Reactions, Alerts Allergen Type Severity Reaction Last Updated Verified Status atorvastatin Allergy Unknown Comment:Myalgias Octobe r 2024 2:13pm Yes Active Social History Smoking Status Status Start Date End Date Date of Observa tion Never smoked tobacco (finding) March 11, 2025 2:33pm Observation Status Observation Response Date of Response Legal Sex Female (finding) [facility] 1949 Family History Relationship Condition Age at Onset Recorded Date/T mamta mother Diabetes mellitus Unknown DeceasedUnknownsisterMalignant melanomaUnknownMalignant neoplasmUnknown Problems Active Problems Medical Problem Onset Date Status Medicare annual wellness visit, subsequent Unkno wn Active JONATHON (generalized anxiety disorder) Unknown Active Screening mammogram for breast cancer Unknown Active Family history of diabetes mellitus Unknown Active Edema Unknown Active Hypercholesterolemia Unknown Active Nephrolithiasis Unknown Active Family history of aortic aneurysm Unknown Active GERD (gastroesophageal reflux disease) Unknown Active Vitamin D deficiency Unknown Active Medications Medication Status Dose Units Route Directions Qty Days St art Date Stop Date End Date Instructions Adherence Escitalopram Oxalate 10 mg tablet Discontinued 1 TAB P O Daily March 01, 2024 12:00amOctober 2023 11:14amFreeTextSi tablet Orally Once a day; Note: Source Status: Taking; Provider: Deshawn Rick ( )Famotidine 20 mg zowbcrFclmzstgeiyq5CNPDUPgxrj at bedtimeMarch 01, 2024 12:00amOctober 2024 2:32pmFreeTextSi tablet at bedtime as needed Orally Once a day; Note: Source Status: Taking; Provider: Deshawn Rick ( )Ezetimibe 10 mg xqoflvObyyrxjxvtsj5FNLAJLoovwNuvzmco 4th, 2024 12:00amOctober 2023 11:14amFreeTextSi tablet Orally Once a day; Note: Source Status: Taking; Provider: Deshawn Rick ( )Latanoprost 0.005 % fljysMsfjmt7JIMHSMVH-IKDPGmswbZfugmpz 4th, 2024 12:00amComplies with drug therapySulfamethoxazole-Trimethoprim 800-160 mg efqbvaEtiwqryqqzgm8HOTAF Twice tzxdp188Ugjte 2024 12:00amOctober 2024 2:13pm Immunizations Immunization Event Date Not Given Reason Dose Number [employer] Lot Number Vaccine Information Statement (VIS) Detail Administration Location Fluzone TIV High-Dose 65YR+ February 19, 2024 [id number] [facility] 65YR+March 11, 2025 [id number] [facility], unspecified formulationJanuary 2017influenza, unspecified formulationSeptember 2017influenza, unspecified formulationOctober 2018influenza, unspecified formulationOctober 2019influenza, unspecified formulationOctober 2020influenza, unspecified formulationOctober 2021influenza, unspecified formulationSeptember neumococcal Conjugate Vaccine, 13 valentNovember 2016Pneumococcal Polysacc. Vaccine, 23 valentDecember 2017 Vital Signs Vital Reading Result Reference Range Collection Date/Time Height 61 [in_i] March 11, 2025 2:16yuQpdktq30.30 kgOctselect [facility] 2024 2:31pmHeart Rate84 /zap43-573Wsvlebt 14th, 2025 2:31pmRespiratory rate14 /uap37-36Frtdtxg 2024 2:31pmOxygen saturation by Pulse pweeyldn32 %95-100Octselect [facility] 2024 2:31pmBP Xxhffhbw775 mm[Hg]100-140Oct2024 2:31pmBP Glegvvtoe13 mm[Hg] 60-100Octselect [facility] hospital 2024 2:31pmBMI (Body Mass Index)23.4 kg/l6Enftqjx 2024 2:31pm Advance Directives Advance Directive Response Recorded Date/ Time Advance Directives No January 10:09am Insurance Providers Guarantor Anival Poe Address [address] [place] [address]Fxaflyi Info.Home Phone: Payer Policy Id Subscriber's Name Subscriber Id Effectiv e Date Ex[place] [facility] [id number] Anival Poe [id number] Encounters Encounter Location(s) Arrival/Admit Date Discharge/Depart Date Provider(s) Departed Physician/Prov ider Office Visit -[facility] March 11, 2025 2:26pm March 11, 2025 3:14pm Prabhjot Hess DO Recent Diagnosis Onset Date Admit Date Family history of diabetes mellitus Unknown March 11, 2025 2:26pm JONATHON (generalized anxiety disorder) Unknown March 11, 2025 2:26pm GERD (gastroesophageal reflux disease) Unknown March 11, 2025 2:26pm Hypercholesterolemia Unknown February 2:26pm Medicare annual wellness visit, subsequent Unkno wn March 11, 2025 2:26pm Nephrolithiasis Unknown March 11 2:26pm Screening mammogram for breast cancer Unknown March 11, 2025 2:26pm Assessments Diagnosis Onset Date Resolution Status Admit Date Family history of diabetes mellitus acuteOctober 2024 2:26pmGAD (generalized anxiety disorder)acuteOctober 2024 2:26pmGERD (gastroesophageal reflux disease)acuteOctober 2024 2:26pmHypercholesterolemiaacuteOctober 2024 2:26pmMedicare annual wellness visit, subsequentacuteOctober 2024 2:26pmNephrolithiasisacuteOctober 2024 2:26pmScreening mammogram for breast canceracuteOctober 2024 2:26pm Plan of Treatment Author Prabhjot Hess [facility]AuthoredOctober 2024 4:29pmI have instructed this patient on the recommended lifestyle changes, which includes a low fat, high fiber diet along with a regular exercise routine. I have also reviewed the recommended age-appropriate preventive testing for this patient. I have also reviewed the recommended vaccines for their age and risk factors. I have instructed this patient on a low fat, high fiber diet and exercise. I have discussed the primary and secondary prevention benefits attributed to lowering LDL cholesterol. I have also discussed the medical treatment of elevated cholesterol, which is based on the 10 year ASCVD risk. I have instructed this patient to avoid lying flat after eating.?? I have also recommended to avoid eating 2 hours prior to bedtime.?? They were also informed that smaller, frequent meals may be better tolerated. I have discussed additional treatment options for persistent symptoms, which includes: weight loss, H2 blockers and PPI. I have also instructed them to notify the office with any pain or difficulty swallowing. Instructed on a healthy diet and exercise routine. Instructed to continue medical treatment w/o interruption. Instructed to avoid abrupt d/c of medication due to w/d symptoms. I have instructed this patient on monthly SBE and recommended yearly mammograms. Healthy diet and exercise Check FBS Future Tests Future scheduled test information is unavailable Pending Tests Test Name Ordered Date Scheduled Date MM screening mammo BI w/CAD March 11, 2025 2 :54pm Comprehensive Metabolic PanelOctober 2024 3:10pm Future Visits Future appointment information is unavailable Referrals to Other Providers Referral information is unavailable Future Procedures Procedure Name Ordered Date Scheduled Date Complete Blood Count Auto Diff March 11 3:10pm Lipid PanelOctober 2024 3:10pmThyroid Stimulating HormoneOctober 2024 3:10pmUrinalysisOctober 2024 3:10pm Future Medications Future medication information is unavailable Patient Instructions Patient instructions are unavailable
--- NOTE | 2025-03-19 14:21 | MM_ITS ---
Patient Name: JANE LIU MR#: [id number] : 1950 Exam Date: 03/19/2025 Ordering Doctor: DR ALEXANDRA YU D.O. RADIOLOGY REPORT PROCEDURE: MM TOMOSYNTHESIS SCREENING BI COMPARISON: MM TOMOSYNTHESIS SCREENING BI, 03/11/2024. MM TOMOSYNTHESIS SCREENING BI, 01/17/2023. MG MAMM SCREEN 3D [place] CAD, 01/25/2021. MG MAMM [place] DIAG W CAD DIG, 04/09/2007. INDICATIONS: Screening Calculator Name NCI Breast Cancer Risk Assessment Tool 5 Year Breast Cancer Risk 1.40% Lifetime Breast Cancer Risk 3.60% Personal Breast Cancer No Personal Ovarian Cancer No Treatments None Family Cancers Sister with malignant melonoma cancer at age 41. LOCATION: [facility] BREAST COMPOSITION: There are scattered areas of fibroglandular density. FINDINGS: RIGHT BREAST: No significant suspicious finding. Benign-appearing calcifications are present. LEFT BREAST: No significant suspicious finding. Benign-appearing calcifications are present. DIAGNOSTIC CATEGORY 2--BENIGN FINDING. NO CHANGE FROM COMPARISON. RECOMMENDATIONS: ROUTINE MAMMOGRAM AND CLINICAL EVALUATION IN 12 MONTHS. Dictated by: Isrrael Monaco MD on 03/19/2025 at 16:11 Approved by: Isrrael Monaco MD on 03/19/2025 at 16:15
--- OUTSIDE RECORDS SUMMARY | 2025-03-19 14:21 | XMS_ITS | CCD ---
Author Organization [facility] Care Team Providers Care Bottom Crane Operator Name Role Phone GABRIEL, DR WILSON Admitting [...] Unavailable Prabhjot Hess DO Primary Care Provider [phone] Prabhjot Hess DO Attending Provider Unallocated , Noms Provider Primary Care Provi dejuan EROS NELSON Attending Unavailable Allergies Allergy ClassificationReported Allergen(s)Allergy TypeDate of OnsetReaction(s) Facility (1 source)black walnut pollen extractDrug Sedyozv87-04-9713[facility] Repository (3 sources)atorvastatinDrug AllergyComment:MyalgiasNort [facility] Other (3 sources)HMG-CoA reductase inhibitorDrug foyuxcr81-48-5428VmgmxruJygcl [facility] Other (1 source)atorvastatinDrug Npzxgji70-28-3355MzbdrwlnnMiddletown Hospital Repository Medications Current Medications MedicationDrug Class(es)DatesSig (Normalized)Sig (Original)Biotin (1 source)Start: 04-32-1458iuow 5000 ug by mouth once dailybiotin 5,000 mcg, Oral, Daily, Refills(s) 0 Start Date: 07/09/24 Status: OrderedCalcium + D 500-1000-40 MG-UNT-MCG (3 sources)Start: 19-55-6568txxa 500-1000 tablets by mouth once dailyCalcium + D 500-1000-40 MG-UNT-MCG as directed Orally 2 TABS DAILY for 0 days Nov, ActiveCalcium Carbonate (1 source)Start: 66-22-1452Yjao See Instructions, Refills(s) 0 Start Date: 07/09/24 Status: Orderedcalcium citrate 1190 mg / cholecalciferol 0.005 mg oral tablet (1 source)Vitamin DStart: 00-59-4413cisp 1 tablet by mouth once dailycalcium (as citrate)-vitamin D 250 mg-200 intl units oral tablet 1 tab(s), Oral, Daily, Refill(s) 0Start Date: 07/09/24 Status: OrderedCentrum (1 source)Start: 00-40-5704Trcxyxn See Instructions, Refill(s) 0 Start Date: 07/09/24 Status: OrderedChondroitin Sulfates / Glucosamine (1 source)Start: 52-76-2187Bpendbjbxeh Chondroitin 3 cap(s), Refill(s) 0 Start Date: 07/09/24 Status: OrderedCollagen (1 source)Start: 20-55-2613qpajswfh topical powder See Instructions, Refill(s) 0 Start Date: 07/09/24 Status: Orderedfamotidine 20 mg oral tablet (8 sources)Histamine-2 Receptor AntagonistStart: 71-91-2080yeax 20 mg by mouth twice dailyfamotidine 20 mg, Oral, BID, Refills(s) 0 Start Date: 07/09/24 Status: OrderedStart: 03-01-2024 End: 85-24-6567usdb 1 tablet by mouth once daily at bedtimeFamotidine 20 mg tablet Discontinued 1 TAB PO Daily at bedtime March 01, 2024 12:00am March 11, 2025 2:32pm FreeTextSi tablet at bedtime as needed Orally Once a day; Note: Source Status: Taking; Provider: Deshawn Rick ( )take 1 tablet by mouth every twenty-four hoursFamotidine 20 MG 1 tablet at bedtime as needed Orally Once a day ActiveGlucosamine Chondroit MSM DS - (3 sources)Start: 87-44-6298Byikmhhwvml Chondroit MSM DS - as directed Orally daily for 0 days May, Activelatanoprost 0.05 mg/ml ophthalmic solution (7 sources)Prostaglandin AnalogStart: 69-21-5306masd 1 drop(s) into the eye(s) once daily in the eveninglatanoprost (Xalatan) 0.005 % ophthalmic solution INSTILL 1 DROP INTO BOTH EYES EVERY EVENING DIRECTED 09/03/2024 ActiveStart: 26-78-2329wlyx 1 drop(s) into the eye(s) once daily in the eveninglatanoprost 0.005% ophthalmic emulsion 1 drop(s), Eye-Both, qPM, Refill(s) 0 Start Date: 07/09/24 Status: OrderedStart: 93-49-4211uceg 1 drop(s) into the eye(s) once dailyLatanoprost 0.005 % drops Active 1 DROPS EYE-BOTH Daily March 01, 2024 12:00am Complies with drug therapyStart: 57-03-1430fwox 1 drop(s) into the eye(s) once dailyLatanoprost 0.005 % drops Active 1 DROPS EYE-BOTH Daily March 01, 2024 12:00amStart: 14-04-9462olbz 1 drop(s) into the eye(s) once daily Latanoprost Active 1 DROPS EYE-BOTH Daily March 01, 2024 12:00amMagnesium (3 sources)Start: 25-45-6425kipf 1 capsule by mouth once dailyMagnesium 400 MG 1 capsule with a meal Orally Once a day for 0 days May, ActiveMagnesium glycinate (1 source)Start: 68-05-7195ntab 250 mg by mouth once dailymagnesium glycinate 250 mg, Oral, Daily, Refills(s) 0 Start Date: 07/09/24 Status: Orderedmelatonin 10 mg extended release oral tablet (1 source)Start: 09-34-1333thef 10 mg by mouth once daily at bedtimemelatonin 10 mg, Oral, Once a day (at bedtime), Refills(s) 0 Start Date: 07/09/24 Status: OrderedMultivitamins (3 sources)Start: 57-18-9821Prccpogvwwpgd Multivitamins , DAILY # 0.00, 12/20/2007, No Refill. Active DAILY for 0 Nov, Activeomeprazole 20 mg oral tablet (3 sources)Proton Pump InhibitorStart: 02-43-5194Mhvdbnulbo 20MG Omeprazole( 20MG Oral 1 daily ) Active -Hx Entry Oral daily for 0 May, Not-Taking Completed/Discontinued Medications MedicationDrug Class(es)DatesSig (Normalized)Sig (Original)escitalopram 10 mg oral tablet (7 sources)Serotonin Reuptake InhibitorStart: 03-01-2024 End: 23-74-1466vslt 1 tablet by mouth once dailyEscitalopram Oxalate 10 mg tablet Discontinued 1 TAB PO Daily March 01, 2024 12:00am March 01, 2024 11:14am FreeTextSi tablet Orally Once a day; Note: Source Status: Taking; Provider: Deshawn Rick ( )take 1 tablet by mouth every twenty- four hoursEscitalopram Oxalate 10 MG 1 tablet Orally Once a day Activeezetimibe 10 mg oral tablet (7 sources)Dietary Cholesterol Absorption InhibitorStart: 03-01-2024 End: 06-20-4425qbmf 1 tablet by mouth once dailyEzetimibe 10 mg tablet Discontinued 1 TAB PO Daily March 01, 2024 12:00am March 01, 2024 11:14am FreeTextSi tablet Orally Once a day; Note: Source Status: Taking; Provider: Deshawn Rick ( )Start: 47-82-2663lthc 1 tablet by mouth every twenty-four hoursEzetimibe 10 MG 1 tablet Orally Once a day Feb, Active sulfamethoxazole 800 mg / trimethoprim 160 mg oral tablet (2 sources)Dihydrofolate Reductase Inhibitor Antibacterial, Sulfonamide AntimicrobialStart: 08-05-2024 End: 22-36-3785rboc 1 tablet by mouth twice dailySulfamethoxazole-Trimethoprim 800-160 mg tablet Discontinued 1 TAB PO Twice daily 03 02August 05, 2024 12:00am March 11, 2025 2:13pm Problems Active Problems Problem ClassificationProblemDateDocumented DateEpisodic/ChronicAbdominal pain (2 sources)Left lower quadrant pain; Translations: [Left lower quadrant pain] 79-23-5216NofbwqvcGrpscwq disorders (9 sources)Generalized anxiety disorder; Translations: [Generalized anxiety disorder]12-55-4975AdgaqsxRwxfudya of urinary tract (4 sources)Kidney stone; Translations: [Calculus of kidney]26-31-0623Zjbpwpkx Disorders of lipid metabolism (10 sources)Hypercholesterolemia; Translations: [Pure hypercholesterolemia, unspecified]42-10-0639MfthrtzEuczuniinm disorders (8 sources)Gastro-esophageal reflux disease with esophagitis; Translations: [Gastro-esophageal reflux disease with esophagitis, without bleeding]02-28-2024 ChronicEsophageal disorders (2 sources)Esophageal disorders; Translations: [Gastro-esophageal reflux disease with esophagitis, without bleeding]Immunizations and screening for infectious disease (1 source)Encounter for immunization; Translations: [Need for prophylactic vaccination and inoculation against unspecified single disease]02-19-2024 EpisodicNutritional deficiencies (7 sources)Vitamin D deficiency; Translations: [Vitamin D deficiency, unspecified]11-27-1000AvjzlqbGiahouximkrz (1 source)Gautassdksjq63-16-8575LjbuxxcBzrkd connective tissue disease (4 sources)Presence of left artificial shoulder joint; Translations: [PRESENCE LT ARTIFICIAL SHOULDER JNT]Onset: 17-87-5036BobhcngUxlmn diseases of kidney and ureters (1 source)Urinary tract obstruction; Translations: [Hydronephrosis with renal and ureteral calculous obstruction]Onset: 93-21-1632KeedjqikWovqe gastrointestinal disorders (2 sources)Abdominal bloating; Translations: [Abdominal distension (gaseous)] 45-37-1717TftacgkcQyrge lower respiratory disease (4 sources)Solitary pulmonary nodule; Translations: [SOLITARY PULMONARY NODULE] Onset: 84-16-4704YsecejdiKzcqy screening for suspected conditions (not mental disorders or infectious disease) (6 sources)Patient encounter status; Translations: [Encounter for screening mammogram for malignant neoplasm of breast]43-94-8629MrouwykuBcdrvqgp codes; unclassified (5 sources)Family history of diabetes mellitus; Translations: [Family history of diabetes mellitus]39-54-2865YvotvnciUiscgxdo codes; unclassified (4 sources)Edema; Translations: [Edema, unspecified]37-43-5864DqcrludfKkyanssw codes; unclassified (4 sources)FH: Aortic aneurysm; Translations: [Family history of ischemic heart disease and other diseases of the circulatory system]46-36-9686SksoxxgqWfiyazck codes; unclassified (1 source)Family history of diabetes mellitus; Translations: [Family history of diabetes mellitus]85-80-3976UnwqtwbiRjiloydc codes; unclassified (1 source)Cggrsdoq63-10-0373YgzxwdreGftsgpjmunaj (1 source)Obstructive jzvocgiiczzozx14-29-9930 Past or Other Problems Problem ClassificationProblemDateDocumented DateEpisodic/ChronicMalaise and fatigue (1 source)Weakness; Translations: [WEAKNESS]Onset: 32-31-4796GygisalbJbmgy connective tissue disease (1 source)Pain in left arm; Translations: [PAIN IN LEFT ARM]Onset: 08-10-2021 Episodic Results Test NameValueInterpretationReference RangeFacilityLaboratory - Chemistry and Chemistry - challengeon 98-24-0006Viufoheww Ql (U)NegativeNEGSelect Medical Specialty Hospital - AkronGlucose (U) [Mass/Vol]NegativeNEGSelect Medical Specialty Hospital - AkronKetones Ql (U)NegativeNEGSelect Medical Specialty Hospital - AkronpH (U)7.5 [pH]5.0-9.0[facility] Hospitalpecific gravity (U) [Rel density]1.0101.005-1.025Middletown HospitalUrobilinogen Qn (U)0.2 {Jerman'U}/dL0.2-1.0[facility] HospitalLaboratory - Specimen informationon 75-21-0010Gklscppcte (U)CLEARCLEARFHenry County HospitalColor (U)LT. YELLOWYELLOWMiddletown HospitalLaboratory - Urinalysison 38-71-5088Ralhklelw esterase Test strip Ql (U)TRACEAbnormalNEGATIVE [facility]letown HospitalNitrite Ql (U)NegativeNEGATIVEMiddletown HospitalProtein Ql (U)NegativeNEG/TRACEMiddletown HospitalNo Panel Informationon 26-56-3903Uytnb Occult BloodNegativeNEGATIVE [facility] HospitalUrine Cultureon 15-01-0129Neretomh identified Cx Nom (U)75,000 colonies/ml mixed bacterial skin contaminants 2 Days PERFORMED BY: [facility] [address] [place] [address] PATHOLOGIST [employer] TENDER GEMMA VELASQUEZ M.D.NormalThe Critical Access Hospital Physician GroupComment on above: Performed By: #### CUU #### [facility] [address] [id number] USALaboratory - Chemistry and Chemistry - challengeon 02-54-0173Wrbuhnwva Ql (U)NegativeMiddletown HospitalGlucose (U) [Mass/Vol]NegativeMiddletown HospitalKetones Ql (U)Negative [facility]own HospitalpH (U)7.0 [pH][facility] Specific gravity (U) [Rel density]1.000[facility] Urobilinogen (U) [Mass/Vol]0.2 mg/dLMiddletown HospitalLaboratory - Specimen informationon 71-86-0856Kdexqlzlvy (U)cloudyMiddletown HospitalColor (U)lightyellowMiddletown HospitalLaboratory - Urinalysison 29-95-0631Onhjhwtie esterase Test strip Ql (U)PositiveMiddletown HospitalNitrite Ql (U)NegativeMiddletown Hospital Protein Ql (U)++[facility] HospitalNo Panel Informationon 26-28-7482Hzxhi Occult Blood++[facility] HospitalUrology Office/Clinic Noteon 23-38-3665Phwqawp Office/Clinic NoteUrology Office/Clinic Note Chief Complaint ER f/u HPI [...] Hydronephrosis with renal and ureteral calculous obstruction) [facility] ER 07/07. 3mm UVJ stone. Didn't [...] E&M of New Patient Moderate 45-59 Min 05300 Orders: Body Mass Index (BMI) documented 3008F [...] Urnls Dip Stick Auto w/o Microscopy POC 79694 Follow-up With When Contact Information Will reassess [...] virus vaccine, inactivated 02/19/2024 Recorded SARS-CoV-2 (COVID-19) mRNAMUL.ORD![id number] 10/06/2022 Recorded influenza virus vaccine, inactivated 03/04/2022 Recorded SARS-CoV-2 (COVID-19) mRNAMUL.ORD![id number] 02/09/2022 Recorded (more content not included)...Peoples HospitalComment on above: Result Comment: Electronically Signed By: ED PABIBI Chatterjee\Date and Time Signed: 07/09/2512:12 ESTBasophils Auto (Bld) [#/Vol]on 42-90-1745Uaysbybwx (Bld) [#/Vol]Automated basophil count0.0-0.1FHenry County Hospital Basophils/100 WBC Auto (Bld)on 29-59-4758Wdiwphbzt/100 WBC (Bld)Automated basophil %0.2-2.0M[facility] HospitalEosinophils/100 WBC Auto (Bld) on 34-73-7367Mdngbzptxkp/100 WBC (Bld)Automated eosinophil %0.9-7.0[facility] HospitalErythrocyte distribution width Auto (RBC) [Ratio]on 43-53-7602Erpzrjnsoto distribution width (RBC) [Ratio]Erythrocyte distribution width [Ratio] by Automated count11.0-15.0[facility] Estimated glomerular filtration rate (GFR) non- Americanon 07-07-2024 GFR/1.73 sq M.predicted among non-blacks MDRD (S/P/Bld) [Vol rate/Area]Estimated glomerular filtration rate (GFR) non- AmericanLow>=60 mL/min/1.73m 2 [facility] HospitalGlobulin Calc (S) [Mass/Vol]on 07-07-2024 Globulin (S) [Mass/Vol]Serum globulin measurement by calculation (mass/volume) [facility] HospitalHematocrit Auto (Bld) [Volume fraction]on 68-78-3435Drgubzyihl (Bld) [Volume fraction]Hematocrit [Volume Fraction] of Blood by Automated count36.0-48.0[facility] HospitalHemoglobin [Mass/volume] in Bloodon 99-10-6417Wqamouxobc (Bld) [Mass/Vol]Hemoglobin [Mass/volume] in Blood12.0-16.0[facility] HospitalLaboratory - Chemistry and Chemistry - challengeon 98-11-7833Bqfocnaai Ql (U)NegativeNEGATIVE [facility] HospitalGlucose (U) [Mass/Vol]NegativeNEGATIVEMiddletown HospitalKetones Ql (U)TRACE mg/dLAbnormalNEGATIVEMiddletown HospitalpH (U)7.0 [pH]5.0-9.0[facility] Specific gravity (U) [Rel density]1.0151.005-1.025M[facility]own HospitalUrobilinogen Qn (U)0.2 {Jerman'U}/dL0.2-1.0[facility] HospitalAlbumin [Mass/Vol]3.6 g/dL3.4-5.0[facility] HospitalALP [Catalytic activity/Vol]64 U/Z22-438PkrhlwjanMiddletown HospitalALT [Catalytic activity/Vol]22 U/A14-83BbjznsimjMiddletown HospitalAST [Catalytic activity/Vol]17 U/X87-96OzvndtutwMiddletown HospitalBilirubin [Mass/Vol]0.4 mg/dL0.2-1.0[facility] HospitalCalcium [Mass/Vol]9.4 mg/dL8.5-10.1FHenry County HospitalChloride [Moles/Vol]101 mmol/L 98-107M[facility] HospitalCO2 [Moles/Vol]29.0 mmol/L21.0-32.0 [facility] HospitalCreatinine [Mass/Vol]1.17 mg/dLHigh0.55-1.02 [facility] HospitalGFR/1.73 sq M.predicted MDRD (S/P/Bld) [Vol rate/Area]55 mL/min/{1.73_m2}Low>=60 mL/min/1.73m 2FHenry County HospitalGlucose [Mass/Vol]116 mg/iEQqzt40-038CrfuzcnhiMiddletown Hospital Potassium [Moles/Vol]3.5 mmol/L3.5-5.1FHenry County HospitalProtein [Mass/Vol]6.9 g/dL6.4-8.2FSamaritan North Health Centerodium [Moles/Vol]137 mmol/V621-405JolzpmfliMiddletown HospitalUrea nitrogen [Mass/Vol]25.0 mg/dL High7.0-18.0[facility] HospitalUrea nitrogen/Creatinine [Mass ratio]21.4 mg/mgMiddletown HospitalLaboratory - Hematology and Cell countson 78-50-2623Typgrzyw granulocytes/100 WBC (Bld)0.2 %0.0-0.5FHenry County HospitalLaboratory - Specimen informationon 32-04-8970Wzbjeypydg (U)CLEARCLEARFHenry County HospitalColor (U)LT. YELLOWYELLOWMiddletown HospitalLaboratory - Urinalysison 25-94-9819Dtgvfbmgl esterase Test strip Ql (U)NegativeNEGATIVEMiddletown HospitalNitrite Ql (U) NegativeNEGATIVEMiddletown HospitalProtein Ql (U)NegativeNEG/TRACE [facility] HospitalLeukocytes [#/volume] corrected for nucleated erythrocytes in Blood by Automated counon 98-93-7277LRY corrected for nucl RBC Auto (Bld) [#/Vol]Leukocytes [#/volume] corrected for nucleated erythrocytes in Blood by Automated coun4.0-11.0[facility] HospitalLymphocytes Auto (Bld) [#/Vol]on 77-82-3790Hvhlmubyair (Bld) [#/Vol]Lymphocytes [#/volume] in Blood by Automated count1.2-3.8[facility] HospitalLymphocytes/100 WBC Auto (Bld)on 86-30-9701Eemkpebxbat/100 WBC (Bld)Lymphocytes/100 leukocytes in Blood by Automated count20.5-60.0[facility], BeachwoodH Auto (RBC) [Entitic mass]on 96-97-3300VXO (RBC) [Entitic mass]MCH [Entitic mass] by Automated count26.7-34.0[facility] HospitalMCHC Auto (RBC) [Mass/Vol]on 85-67-7461BGCN (RBC) [Mass/Vol]MCHC [Mass/volume] by Automated count29.9-35.2FHenry County HospitalMCV Auto (RBC) [Entitic vol]on 81-19-7120PZH (RBC) [Entitic vol]MCV [Entitic volume] by Automated count 81.0-99.0[facility] HospitalMonocytes Auto (Bld) [#/Vol]on 86-30-7067Hlzdyxckh (Bld) [#/Vol]Automated blood monocyte count0.3-0.8[facility] HospitalMonocytes/100 WBC Auto (Bld)on 74-64-8658Vyzcdjspl/100 WBC (Bld)Automated monocyte %1.7-12.0[facility] Neutrophils Auto (Bld) [#/Vol]on 55-36-3089Xrmyvvnvpcc (Bld) [#/Vol]Neutrophils [#/volume] in Blood by Automated count1.4-6.5FHenry County Hospital Neutrophils/100 WBC Auto (Bld)on 82-15-6738Hxeocoztirg/100 WBC (Bld)Automated neutrophil %43.0-75.0[facility] HospitalNo Panel Informationon 97-48-8953Fmrju Microscopic ReviewNOMiddletown HospitalUrine Occult BloodNegativeNEGATIVEMiddletown HospitalEosinophils # (Auto)0.1 10 3/uL0.0-0.7FHenry County HospitalImmature Granulocyte # (Auto)0.01 10 3/uL0.00-0.03[facility]own HospitalPlatelet mean volume Auto (Bld) [Entitic vol]on 00-17-0332Qlxcoqjj mean volume (Bld) [Entitic vol] Platelet mean volume [Entitic volume] in Blood by Automated count9.5-13.5 [facility] HospitalPlatelets Auto (Bld) [#/Vol]on 07-07-2024 Platelets (Bld) [#/Vol]Platelets [#/volume] in Blood by Automated bleal630-036 [facility] HospitalRBC Auto (Bld) [#/Vol]on 81-88-5738BWY (Bld) [#/Vol]Erythrocytes [#/volume] in Blood by Automated countLow4.20-5.40[facility] Hospitalerum or plasma albumin/globulin mass ratioon 07-07-2024 Albumin/Globulin [Mass ratio]Serum or plasma albumin/globulin mass ratio [facility] Hospitalerum or plasma anion gap determinationon 42-16-9073Zxmqh gap [Moles/Vol]Serum or plasma anion gap determinationMiddletown HospitalCT CHEST WO CONon 61-37-8889IP CHEST WO CONEXAMINATION: CT CHEST WO CON HISTORY: Solitary nodule [...] Electronically authenticated by: KEY BROWN Date: 2022-05-10 12:14[facility] Vital Signs Date TimeVital SignValuePerforming VermrlwwjUmkiapxs68-28-0858 14:37-0400Body ypxnzn12.79 kgEros Nelson MD Work Phone: [facility] CenterZwyqebukkm89-31-3811 14:37-0400Diastolic blood cysujvxe31 mm[Hg]Eros Nelson MD Work Phone: [facility] CenterXehfrevzct55-02-6684 14:37-0400Systolic blood cmycnvst729 mm[Hg]Eros Nelson MD Work Phone: [facility] CenterStzrnezroy71-98-0965 14:31-0400Body xmosrr811.94 cmBenjamin Ball DO Work Phone: [facility]10-14-2025 14:31-0400 Body mass index (BMI) [Ratio]23.4 kg/z8Ryljsuwm Ball DO Work Phone: [facility]10-14-2025 14:31-0400 Body upljpy18.3 kgBenjamin Ball DO Work Phone: [facility]10-14-2025 14:31-0400 Diastolic blood lacwkmwh09 mm[Hg]Prabhjot Ball DO Work Phone: [facility]10-14-2025 14:31-0400 Heart rate84 /minBenjamin Ball DO Work Phone: [facility]10-14-2025 14:31-0400 Respiratory rate14 /minBenjamin Ball DO Work Phone: [facility]10-14-2025 14:31-0400 SaO2% (BldA) [Mass fraction]99 %Prabhjot Ball DO Work Phone: [facility]10-14-2025 14:31-0400 Systolic blood cjervqbe141 mm[Hg]Prabhjot Ball DO Work Phone: [facility]02-11-2025 10:45-0500 Blood Pressure LocationJENNIFER ED [facility]02-11-2025 10:45-0500Diastolic blood mm[Hg]BIBI ED [facility]02-11-2025 10:45-0500Heart rate87 /minJENNIFER ED [facility]02-11-2025 10:45-0500Respiratory rate18 /minJENNIFER ED [facility]02-11-2025 10:45-0500Systolic blood wqazgeku563 mm[Hg]BIBI ED [facility]10-04-2024 11:11-0400Body bugsxd671.94 cmMiddletown Hospital10-04-2024 11:11-0400Body mass index (BMI) [Ratio]23.8 kg/x8ZzpytiyjwMiddletown Hospital10-04-2024 11:11-0400Body vjspca16.15 kgMiddletown Hospital10-04-2024 11:11-0400Diastolic blood mm[Hg] [facility]10-04-2024 11:11-0400Heart rate76 /[facility]10-04-2024 11:11-0400Respiratory rate12 /[facility]10-04-2024 11:11-0400Systolic blood mm[Hg] [facility] Encounters Encounter DateEncounter TypeCare ProviderFacilityStart: 18-42-0408nlkzhflejk BIBI Pate PERRYFacility:EU BellevueStart: 03-12-2025 End: 29-19-8461Ajsedj outpatient new 45 minutesEros Nelson MD Work Phone: [facility] [place] OBGYNComment on above:Left lower quadrant pain (Primary Dx); Abdominal bloatingStart: 03-12-2025 End: 28-61-7890twlsrtfnsfIXBGR J PRINTYNot AvailableStart: 03-12-2025 End: 49-76-3754Lmozmm Kelvin Nelson MD Work Phone: [facility] OBGYNStart: 03-12-2025 End: 75-05-1049Pevqqjjun Nelson MD Work Phone: [facility] [place] OBGYNStart: 03-11-2025 End: 26-76-1899nustqrdanvRwqxmozl Ball DO Work Phone: [facility] Work Phone: Start: 03-11-2025 End: 52-18-4029Aubjbwc encounter procedureBenjamin Ball DO-[facility] Work Phone: Start: 08-15-2024 End: 52-18-7037qnmtgiixacJnomevuc E PerryFacility:[facility] Hospitaltart: 94-75-0244Brz-patient / Non-visitFirelands Physician [facility] Work Phone: Start: 08-05-2024 End: 79-61-5861czcdggahjcVysxttfygElyria [facility] Hospital Work Phone: Start: 08-05-2024 End: 10-90-1404Mfogchw encounter procedureFirglenwood landings Physician [facility] Work Phone: Start: 76-93-9877Xpb-patient / Non-visitFirelands Physician Group-[facility] Work Phone: Start: 07-09-2024 End: 26-62-9445wjhpoeuvbjRYROYTIV E PERRYFacility:[facility] HospitalueStart: 07-09-2024 End: 35-49-8761Ohgfceg encounter procedureJENNIFER E ED [facility] start: 21-79-7197Yle-patient / Non-visitFirelands Physician Group-[facility] Work Phone: Start: 03-01-2024 End: 64-98-8835wsguasruutPlzrwrwvxElyria Memorial Hospital Work Phone: Start: 03-01-2024 End: 79-84-8755Thjcjom encounter procedureFirglenwood landings Physician Group-[facility] Work Phone: Start: 04-01-5197Bbqcdjy encounter procedureAvita Health System Bucy[facility] Hospitaltart: 02-19-2024 End: 97-05-3321aulhcopxemPpsxaohjyElyria Memorial Hospital Work Phone: Start: 02-19-2024 End: 66-75-6794Bradkbz encounter procedureFirglenwood landings Physician Group-[facility] Work Phone: Start: 02-17-2023 End: 46-34-4209dfwloozpbmZntazucp Deshawn Other [facility] [employer] Other Start: 84-31-9491Xkidmph evaluation of patient and reportPrabhjot [facility] Medical ClinicStart: 02-03-2023 End: 77-05-4055ogznztkeiaPylwmlkf Ball Other [facility] [employer] Other Start: 22-18-8582Dxahembfd encounterBeoksana Hess Medical ClinicStart: 01-16-2023 End: 83-42-5739pyuviqkmsaYrmrdefx Ball Other [facility] [employer] Other Start: 42-40-3989Mtfxqokgk encounterBeoksana Hess Medical ClinicStart: 05-10-2022 End: 55-83-2426zftqlabcepCT PRABHJOT BALLFacility:Y3Udxca: 08-04-2021 End: 65-63-7183rzzdgkcvdlDG DOCTOR MISCFacility:H1 Procedures DateProcedureProcedure DetailPerforming ClinicianAppendectomyJENNIFER ED Bilateral cataracts (disorder)BIBI ED Bilateral tubal ligationJENNIFER ED History of operative procedure on shoulderJENNIFER ED HysterectomyJENNIFER ED TonsillectomyJENNIFER ED Plan of Treatment DateCare ActivityDetailAuthorStart: 03-28-2025 End: 00-58-0297Kshbslsdivjz / ancillary services imwjozbstp78/31/2025 10:30 AM EDT Ancillary Procedure NOMNicole MENENDEZ [address] [place] [id number] [phone] [facility] BLAIRGYNStart: 03-12-2025 End: 47-51-9550Heuxccs encounter qpiwddczs21/15/2025 2:30 PM EDT Office Visit MELANI PENALOZAN [address] [place] [phone] Eros Nelson MD [address] [place] [address] Well woman exam with routine gynecological exam; Cervical cancer screening; Screening for HPV (human papillomavirus); Other screening mammogramNOMS Helm OBGYNComment on above:Well woman exam with routine gynecological exam; Cervical cancer screening; Screening for HPV (human papillomavirus); Other screening mammogramStart: 27-26-7882Vmvlrelim vaccinationInfluenza Vaccine (#1)[facility] HealthcareStart: 49-81-2514Sfrqy cultureAvita Health System Bucyrus Hospitaltart: 17-93-3237Hwnctxszb for malignant neoplasm of breastMammogramNOOH HealthcareStart: 29-48-7305Ttbtjtpwk for malignant neoplasm of colonNOOH HealthcareComprehensive metabolic 2000 panel - Serum or PlasmaMiddletown HospitalMG Breast - bilateral ScreeningMiddletown Hospital MG Breast - bilateral ScreeningMiddletown HospitalUS scan of abdominal aortaJackson [facility] Immunizations Immunization DateImmunizationNotesCare AbnhftvpUswatydh71-44-2244dogumbouc, high dose seasonal, preservative-freeBenjamin Ball DO Work Phone: [facility]09-23-2024influenza virus vaccine, unspecified formulationBIBI WARD [facility] Crufqwat05-79-6563ufkpokfrh, high dose seasonal, preservative-freeMiddletown Hospital09-22-2023influenza virus vaccine, unspecified formulationM[facility]letown Hospital09-22-2023influenza, high dose seasonal, preservative-freeBenjamin Ball Other [place] [employer] Other [id number]-DvF-3 (COVID-19) mRNAMUL.ORD![id number] BIBI WARD [facility]10-07-2022influenza virus vaccine, unspecified formulationMiddletown Hospital10-07-2022influenza, high dose seasonal, preservative-freePrabhjot Hess Other [employer] Other [id number]-KyJ-1 (COVID-19) mRNAMUL.ORD![id number] BIBI WARD [facility]10-22-2021influenza virus vaccine, split virus (incl. purified surface antigen)Prabhjot Hess Other [employer] Other [id number] virus vaccine, unspecified formulationM[facility]letown Hospital10-08-2021SARS-CoV-2 (COVID-19) mRNA BNT-162b2 vaxJENNIFER ED [facility] CenterComment on above:Result Comment: 2024-07-09: [id number]-BpX-7 (COVID-19) mRNA BNT-162b2 vaxJENNIFER ED [facility]02-12-2021SARS-CoV-2 (COVID-19) mRNA BNT-162b2 vaxJENNIFER ED [facility]10-13-2020influenza virus vaccine, split virus (incl. purified surface antigen)Prabhjot Hess Other [employer] Other [id number] virus vaccine, unspecified formulationM[facility]letown Hospital10-14-2019influenza virus vaccine, split virus (incl. purified surface antigen)Prabhjot Hess Other [employer] Other [id number] virus vaccine, unspecified formulationM[facility]let[facility] Hospital12-11-2018pneumococcal polysaccharide vaccine, 23 valentBeoksana Hess Other [facility]10-31-2018influenza virus vaccine, unspecified formulationJENNIFER ED [facility]09-12-2018influenza virus vaccine, split virus (incl. purified surface antigen)Prabhjot Hess Other [employer] Other [id number] virus vaccine, unspecified formulationM[facility] Hospital01-23-2018influenza virus vaccine, split virus (incl. purified surface antigen)Prabhjot Hess Other [employer] Other [id number] virus vaccine, unspecified formulationMiddletown Hospital11-28-2017pneumococcal conjugate vaccine, 13 valentEstradaerisjorge Hess Other [facility]10-25-2014influenza virus vaccine, unspecified formulationJENNIFER ED [facility] Payers DatePayer CategoryPayerPolicy [id number] Health InsuranceMEDICAL MUTUAL Member Subscriber Plan / Payer (Effective 2021- Present) Name: Lynsey Thrasher Relation to Subscriber: Self Name: Mona Thrasher Payer ID: Not on file Type: Not on file Address: [address] [id number] 2016Medicare MEDICARE [id number] [id number] [id number] [id number] Social History DateTypeDetailFacilityStart: 02-21-2025 End: 33-91-5747Jen [facility]atart: 22-72-2407Lvw [facility] At [facility]art: 07-09-2024 End: 92-53-2014Wykkukx smoking statusNever smoked tobacco (finding)[facility] BellevueStart: 18-30-1388Nbvmuev smoking statusNeverExecutive Urology of [facility] Medical CenterueTobao smoking status NHISUnknown if ever smokedUc West Chester Hospital Work Phone: Start: 08-05-2024 End: 31-32-8388MrqZivmoz (finding)[facility] Hospitaltart: 34-78-4589Dyevsjg use and exposureSmokeless tobacco non-userNOMS Healthcare Start: 02-21-2025 End: 96-43-6693Yvdqxoigx beverage intakeCurrent drinker of alcohol (finding)[facility] HealthcareStart: 02-21-2025 End: 32-99-4896Phvzxsj of Social functionNOMS HealthcareStart: 92-20-2864Hne assigned at birthNot on fileNOMS HealthcareStart: 64-92-0103Exmurz identity Identifies as female gender (finding)[facility]MAR[facility] HealthcareStart: 77-82-1055Kbglube CommentRarelyNOMS Healthcare Functional Status FnewLbymaanpxjBrdbmzWusuzzla42-75-6937Eksssidgtj StatusN/AExec[facility] Clinical Notes 07-09-2024 to 03-12-2025 Note Date & YgngLzdhMvvsfzpr40-65-7975 History of Present illness Narrative* Eros Nelson MD - 03/12/2025 2:30 PM EDT Eros Nelson MD Obstetrics and Gynecology Patient: Mona Thrasher, : 1950 (74 y.o.) DOS 03/12/25 Exam Date: 03/12/2025 HPI: Establishing care. She c/o vague LLQ discomfort. She c/o abd bloating and increasing girth. She hashad hysterectomy, but she does not know about [...] Review Audit Reviewed by Carrie Melgar MA (Fire Alarm Operator) on 03/12/25 at 1440 Medication Order Taking? Sig Documenting Provider Last Dose Status latanoprost (Xalatan) 0.005 % ophthalmic solution [id number] Yes INSTILL 1 DROP INTO BOTH EYES EVERY EVENING DIRECTED Eros Nelson MD Active Allergies[1] Medical History[2] Surgical [...] BIOPSY BUNIONECTOMY CATARACT EXTRACTION SECTION, LOW TRANSVERSE 1977 DILATION AND CURETTAGE OF UTERUS EYE SURGERY HYSTERECTOMY 2017 Bladder and rectocele repair OTHER SURGICAL HISTORY Left Shoulder OTHER SURGICAL HISTORY Left Knee arthroscopy OTHER SURGICAL HISTORY Shoulder TUBAL LIGATION VAGINAL DELIVERY documented in this encounterMetropolitan Saint Louis Psychiatric CenterLgshwfruym42-42-8012 Hospital Discharge instructions Patient Education 07/09/2024 13:10:41 Dietary Guidelines [...] about 300 mg of calcium at each meal.Foods that contain 200 500 mg of calcium a serving include: ?8 oz (237 mL) of milk, ifhfwbl-aivhevaicbve-kehwv milk, and calcium- fortifiedfruit juice. Calcium-fortified means that calcium has been [...] the table and allow each person to addtheir own salt to taste. Use vegetable protein, such as beans, textured vegetable protein (TVP), or tofu, instead of meat inpasta, casseroles, and soups. Meal planning Eat less salt, if told by your dietitian. To do this: ?Avoid eating processed or pre-made food. ?Avoid eating fast food. Eat less animal protein, including cheese, meat, poultry, or fish, if told by your dietitian. To dothis: ?Limit the number of times you have meat, poultry, fish, or cheese each week. Eat a diet free of meat at least 2 days a week. ?Eat only one serving each day of meat, poultry, fish, or seafood. ?When you prepare animal proteins, cut pieces into small portion sizes. For most meat and fish, oneserving is about the size of the palm [...] ?Spinach (cooked), rhubarb, beets, sweet potatoes, and Moroccan chard. ?Peanuts. ?Potato chips, dutch fries, and baked potatoes with skin on. ?Nuts and nut products. ?Chocolate. If you regularly take a diuretic medicine, make sure to eat at least 1 or 2 servings of fruits or vegetables that are high in potassium each day. These include: ?Avocado. ?Banana. ?[place]ahn[place], prune, carrot, or tomato juice. ?Baked potato. [...] magnesium, fish oil, or vitamin B6. Take zmhv-xay-qwtzbma and prescription medicines only as told by [...] Casseroles. Pizza. Lasagna. Frozen meals. Potato chips. Maori fries. The items listed above may not be a complete list of foods and beverages you should limit. Contact a dietitian for more information. What foods should I avoid? Talk to your dietitian about specific foods you should avoid based on the type of kidney stones youhave and your overall health. Fruits Grapefruit. The item listed above may not be a complete list of foods and beverages you should avoid. Contact adietitian for more information. Summary Kidney stones are [...] provider. Document Revised: 08/25/2022 Document Reviewed: 08/25/2022 [employer] Patient Education 2023 [employer]. Follow Up Care 07/08/2024 09:58:25 With:Will reassess situation in 1 week. Address:Unknown When: Unknown [facility] [place] 02-11-2025 NotePatient Education Nephrology Dietary Guidelines to Help Prevent [...] labels. Limit your salt (sodium) intake to lessthan 1,500 mg a day. ??? Choose foods with calcium for each meal and snack. Try to eat about 300 mg of calcium at each meal. Foods that contain 200?500 mg of calcium a serving include: ? 8 oz (237 mL) of milk, xaovxts-xciaplkrrvgb-sqaro milk, and calcium- fortifiedfruit juice. Calcium-fortified means that calcium has been [...] on the table and allow each person toadd their own salt to taste. ??? Use [...] Spinach (cooked), rhubarb, beets, sweet potatoes, and Moroccan chard. ? Peanuts. ? Potato chips, dutch fries, and baked potatoes with skin on. ? Nuts and nut products. ? Chocolate. ??? If you regularly take a diuretic medicine, make sure to eat at least 1 or 2 servings of fruits or vegetables that are high in potassium each day. These include: ? Avocado. ? Banana. ? [place], prune, carrot, or tomato juice. ? Baked potato. ? Cabbage. ? Beans and split peas. Lifestyle ??? Drink enough fluid to keep your urine pale yellow. This is the most important thing you can do.Spread your fluid intake throughout the day. ??? [...] fish oil, or vitamin B6. ??? Take geil-kof-nengzjl and prescription medicines only as told by your health (more content not included)...[facility] HospitalChief complaint+Reason for visit Narrative* Chief Complaint flu shot WellnessReason for VisitImmunization due Family history of diabetes mellitus JONATHON (generalized anxiety disorder) GERD (gastroesophageal reflux disease) Hypercholesterolemia Medicare annual wellness visit, subsequent Screening mammogram for breast cancer [facility] Work Phone: Evaluation + Plan note No data available for this section [facility] [place] evaluation noteNo InformationNort [employer] Other Evaluation noteNo assessment information available [facility] Work Phone: Evaluation note* Diagnosis Onset Date Resolution Status Immunization due noneactiveFamily history of diabetes mellitusacuteGAD (generalized anxiety disorder)acuteGERD (gastroesophageal reflux disease)acuteHypercholesterolemia acuteMedicare annual wellness visit, subsequentacuteScreening mammogram for breast canceracute [facility] Work Phone: Evaluation note* Diagnosis Onset Date Resolution Status Admit Date Family history of diabetes mellitus acuteOctober 2024 2:26pmGAD (generalized anxiety disorder)acuteOctober 2024 2:26pmGERD (gastroesophageal reflux disease)acuteOctober 2024 2:26pmHypercholesterolemiaacuteOctober 2024 2:26pmMedicare annual wellness visit, subsequentacuteOctober 2024 2:26pmNephrolithiasisacuteOctober 2024 2:26pmScreening mammogram for breast canceracuteOctcal[facility] 2024 2:26pm [facility] Work Phone: Evaluation note* Diagnosis Left lower quadrant pain- Primary Abdominal pain, left lower quadrant Abdominal bloating Flatulence, eructation, and gas pain documented in this encounter [facility] HealthcareHistory general Narrative - Reported* Type Description Date Medical History Palpitations Medical HistoryGeneralized anxiety disorderMedical HistoryHyperlipidemia, unspecifiedMedical HistoryFlushingMedical HistorySolitary lung noduleSurgical [id number] HistoryREVERSE TOTAL REPLACEMENT OF LEFT SHOULDER JOINTSurgical HistoryTONSILLECTOMYSurgical HistoryAPPENDECTOMYSurgical History ARTHROSCOPY, SHOULDER, BILATERALHospitalization HistorySEE SURIGICAL [employer] Other Progress note No data available for this section [facility] reason for referral (narrative)No reason for referral information availableUc West Chester Hospital Work Phone: Summary Purpose Family History No Family History Records Found Relationship Condition Age at Onset Recorded Date/T mamta mother Diabetes mellitus Unknown DeceasedUnknownsisterMalignant melanomaUnknownMalignant neoplasmUnknown Advance Directives No Advanced Directives Records Found Advance Directive Response Recorded Date/ Time Advance [...] and content) DATE CREATED AUTHOR 05/20/2022 [facility] DATE CREATED AUTHOR AUTHOR'S ORGANIZ ATION 08/17/2024 [facility] DATE CREATED AUTHOR AUTHOR'S ORGANIZ ATION 08/21/2024 [facility] DATE CREATED AUTHOR AUTHOR'S ORGANIZ ATION 03/14/2025 [facility] EPIC REASON FOR VISIT (unrecogniz ed section and content) Lab ResultsCologuard results flu shot Care Teams (unrecognized sec tion and content) Team Status: Active Member Role Status Dates Prabhjot Hess DO Primary Care Provider Active Team Status: Inactive Member Role Status Dates Prabhjot Hess DO Primary Care Provider Active Start: March 11, 2025 End: March 11Moises Irby ProviderActiveStart: March 11, 2025 End: March 11, 2025 Team Status: Active Member Role Status Dates Prabhjot Hess DO Primary Care Provider Active Start: July 07, 2024 Gracie Sandoval MDAttending ProviderActiveStart: July 07, 2024 Team Status: Active Member Role Status Dates Prabhjot Hess DO Primary Care Provider Active Start: July 09, 2024 Lucas Hawk ProviderActiveStart: July 09, 2024 Team Status: Inactive Member [...] Hess DO Primary Care Provider Active Start: August 15, 2024 SHARYN Frey-CAttending ProviderActiveStart: August 15, 2024 Team MemberRelationshipSpecialtyStart DateEnd Date Unallocated, Melani Merrill MD [facility] [place] [address] [address] [facility] - [facility] Uraknpqx45/9/25Team MemberRelationshipSpecialtyStart DateEnd Date Unallocated, Melani Merrill MD [address] [facility] [place] [address] PCP - Generalmi Zmffblzj17/9/25 Goals (unrecognized section and content) Goals may [...] BE BASED ON THE PRIMARY CLINICAL RECORDS. [facility] [employer] [facility]. provides no warranty or guarantee of the accuracy or completeness of information in this document.
--- NOTE | 2025-03-19 14:45 | CT_ITS ---
The [address] [address] Patient Name: JANE LIU MRN: [id number] date: 1950 Sex: F Assigned Patient Location: [facility] Current Patient Location: [facility] Accession/Order Number: [id number] Exam Date: 03/19/2025 14:42 Report Date: 03/19/2025 22:15 At the request of: ALEXANDRA YU DO Procedure: CT abdomen pelvis wo con CT ABDOMEN AND PELVIS WITHOUT INTRAVENOUS CONTRAST: CLINICAL HISTORY: Kidney Stone, Right Lower Quadrant Pain COMPARISON: I abdominal x-ray 08/15/2024 TECHNIQUE: Spiral images were obtained through the abdomen and pelvis without intravenous contrast. This CT exam was performed using one or more following dose reduction techniques: Automated exposure control, adjustment of the mA and/or kV according to patient size, or use of iterative reconstruction technique. FINDINGS: Lung Bases: [No focal opacity] Organs:Gallbladder contracted. Liver, spleen, adrenals, kidneys, and pancreas are unremarkable.[ GI: Moderate gastric distention with air-fluid level. Layering density within the gastric antrum possibly related to recently administered medication. Small hiatal hernia otherwise vdpl-pf-mtxzhmec retained stool. No bowel obstruction. Colonic diverticulosis. The appendix is not identified. There are no pericecal inflammatory changes.[ Pelvis:[Uterus absent. No adnexal mass. Bladder unremarkable.] Peritoneum/Retroperitoneum:No free air or free fluid. Moderate plaque involving the nonaneurysmal aorta. Small fat-containing right inguinal hernia.[ Abd wall/Bones:Levocurvature of the lumbar spine with multilevel degenerative changes noted. There are degenerative changes both hips right greater than left and degenerative changes involving the sacroiliac joints. No suspicious osseous lesion.[ CT/CT abdomen pelvis wo con IMPRESSION: Negative acute lung process or bowel obstruction. Appendix not visualized. No pericecal inflammatory changes Negative for nephrolithiasis or obstructive uropathy. Impression dictated by: Vazquez Garcia M.D. 03/19/2025 10:15 PM Dictation Location: [place] [address] Electronically authenticated by: [id number] Y Date: 03/19/2025 22:15
== END 2025-03-19 14:17 | disposition home or self-care (01) ==
LOC: MAMMO 14:16
PROVIDERS: PCP Internal Medicine; Visit Provider Internal Medicine
DX: Z12.31 Encounter for screening mammogram for malignant neoplasm of breast (principal); N20.0 Calculus of kidney; R10.31 Right lower quadrant pain
CPT/HCPCS: 74176; 77063; 77067